=== PATIENT | male | born 1955 | race Caucasian/White ===

== ENCOUNTER 2019-01-02 14:34 | Inpatient (IN) | payer OTHER ==
--- NOTE | 2019-01-02 15:24 | ER Document Report ---
ED Medical Screen (RME) - General Chief Complaint: Chest Pain Stated Complaint: SHORTNESS OF BREATH Time Seen by Provider: 01/02/19 15:10 Primary Care Provider: RANDOLPH EPPERSON PA [Primary Care Provider] - Follow up as needed Mode of Arrival: Wheelchair Information source: Patient Notes: Patient presents emergency department sent over from the [place] with complaints of chest tightness cough difficulty getting a deep breath. History of recent TN on December 26. He was evaluated at [facility] and sent to [facility] for stent placement. He also reports stent placed in April 2018. Patient is coughing frequently. Reports chest tightness. Reports had chest tightness with his recent TN also. Patient is taking anticoagulant- Effient I have greeted and performed a rapid initial assessment of this patient. A comprehensive ED assessment and evaluation of the patient, analysis of test results and completion of the medical decision making process will be conducted by additional ED providers. Dictation of this chart was performed using voice recognition software; therefore, there may be some unintended grammatical errors. - Related Data Allergies/Adverse Reactions: No Known Allergies Allergy (Unverified 01/02/19 14:38) Physical Exam - Vital signs Vitals: Temp Pulse Resp BP Pulse Ox 99.7 F 96 20 107/65 91 L 01/02/19 14:40 01/02/19 14:40 01/02/19 14:40 01/02/19 14:40 01/02/19 14:40 Course - Vital Signs Vital signs: Temp Pulse Resp BP Pulse Ox 99.7 F 96 20 107/65 91 L 01/02/19 14:40 01/02/19 14:40 01/02/19 14:40 01/02/19 14:40 01/02/19 14:40 Doctor's Discharge - Discharge Referrals: RANDOLPH EPPERSON PA [Primary Care Provider] - Follow up as needed
[2019-01-02 15:52] LABS: ABSOLUTE BASOPHILS # (AUTO) 0.2 10^3/uL (0.0-0.2); ABSOLUTE EOSINOPHILS # (AUTO) 0.2 10^3/uL (0.0-0.6); ABSOLUTE LYMPHOCYTES (AUTO) 3.1 10^3/uL (0.5-4.7); ABSOLUTE MONOCYTES (AUTO) 3.1 10^3/uL (0.1-1.4); ABSOLUTE NEUT (AUTO) 13.1 10^3/uL (1.7-8.2); HEMATOCRIT 44.7 % (37.9-51.0); HEMOGLOBIN 15.3 g/dL (13.5-17.0); LYMPHOCYTES % (AUTO) 15.9 % (13-45); MEAN CORPUSCULAR HGB CONC 34.3 g/dL (32.0-36.0); MEAN CORPUSCULAR VOLUME 93 fl (80-97); MONOCYTES % (AUTO) 15.7 % (3-13); PLATELET COUNT 346 10^3/uL (150-450); RED CELL DISTRIBUTION WIDTH 12.9 % (11.5-14.0); SEGMENTED NEUTROPHILS % (AUTO) 66.4 % (42-78); TOTAL CELLS COUNTED % (AUTO) 100 %; WHITE BLOOD COUNT 19.7 10^3/uL (4.0-10.5)
--- NOTE | 2019-01-02 15:53 | RADIOLOGY REPORT (SQ) ---
EXAM DESCRIPTION: CHEST 2 VIEWS COMPLETED DATE/TIME: 01/02/2019 3:38 pm REASON FOR STUDY: chest tightness COMPARISON: 02/27/2007 EXAM PARAMETERS: NUMBER OF VIEWS: two views TECHNIQUE: Digital Frontal and Lateral radiographic views of the chest acquired. RADIATION DOSE: NA LIMITATIONS: none FINDINGS: LUNGS AND PLEURA: No opacities, masses or pneumothorax. No pleural effusion. MEDIASTINUM AND HILAR STRUCTURES: No masses or contour abnormalities. HEART AND VASCULAR STRUCTURES: Heart normal size. No evidence for failure. BONES: No acute findings. HARDWARE: None in the chest. OTHER: No other significant finding. IMPRESSION: NO ACUTE RADIOGRAPHIC FINDING IN THE CHEST. TECHNICAL DOCUMENTATION: JOB ID: [id number] [employer]- All Rights Reserved Reading location - IP/workstation name: [email or web address]
[2019-01-02 16:17] LABS: ALANINE AMINOTRANSFERASE 30 U/L (21-72); ALKALINE PHOSPHATASE 98 U/L (38-126); ANION GAP 10 (5-19); ASPARTATE AMINO TRANSFERASE 24 U/L (17-59); BILIRUBIN,DIRECT 0.3 mg/dL (0.0-0.4); BILIRUBIN,TOTAL 1.1 mg/dL (0.2-1.3); BLOOD UREA NITROGEN 17 mg/dL (7-20); CALCIUM 9.3 mg/dL (8.4-10.2); CARBON DIOXIDE 30 mmol/L (22-30); CHLORIDE 99 mmol/L (98-107); CREATINE KINASE 75 U/L (55-170); GLUCOSE 109 mg/dL (75-110); POTASSIUM 4.6 mmol/L (3.6-5.0); SODIUM 138.5 mmol/L (137-145); TOTAL PROTEIN 7.1 g/dL (6.3-8.2)
--- NOTE | 2019-01-02 16:59 | ER Document Report ---
ED General - General Chief Complaint: Chest Pain Stated Complaint: SHORTNESS OF BREATH Time Seen by Provider: 01/02/19 15:10 Mode of Arrival: Wheelchair Information source: Patient Notes: This is a 63-year-old man with a history of COPD, obstructive sleep apnea (to be started on CPAP), coronary artery disease (history of 2 stents, one stent placed 1 week ago at [facility]) who presents to the emergency room with shortness of breath, productive cough (yellow and green sputum), chest tightness, wheezing - HPI Onset: Last week Onset/Duration: Gradual Quality of pain: No pain Severity: None Pain Level: Denies Associated symptoms: Productive cough, Shortness of breath. denies: Fever Exacerbated by: Movement Relieved by: Remaining still Similar symptoms previously: Yes Recently seen / treated by doctor: Yes - Related Data Allergies/Adverse Reactions: No Known Allergies Allergy (Unverified 01/02/19 14:38) Past Medical History - General Information source: Patient - Social History Smoking Status: Former Smoker Cigarette use (# per day): No - Quit 3 weeks ago Chew tobacco use (# tins/day): No Frequency of alcohol use: None Drug Abuse: None Lives with: Family Family History: None Patient has suicidal ideation: No Patient has homicidal ideation: No - Past Medical History Cardiac Medical History: Reports: Hx Hypertension Renal/ Medical History: Denies: Hx Peritoneal Dialysis Past Surgical History: Reports: Hx Cardiac Catheterization Review of Systems - Review of Systems Constitutional: denies: Chills, Fever EENT: No symptoms reported Cardiovascular: No symptoms reported Respiratory: See HPI Gastrointestinal: No symptoms reported Genitourinary: No symptoms reported Male Genitourinary: No symptoms reported Musculoskeletal: No symptoms reported Skin: No symptoms reported Hematologic/Lymphatic: No symptoms reported Neurological/Psychological: No symptoms reported Physical Exam - Vital signs Vitals: Temp Pulse Resp BP Pulse Ox 99.7 F 96 20 107/65 91 L 01/02/19 14:40 01/02/19 14:40 01/02/19 14:40 01/02/19 14:40 01/02/19 14:40 Notes: Physical exam: GENERAL: Patient is alert and oriented x3, no acute distress, blood pressure 104/76, pulse 88, O2 sat 94% on 2 L, respiratory rate 15. HEAD: Atraumatic, normocephalic. EYES: Pupils equal round and reactive to light, extraocular movements intact, sclera anicteric, conjunctiva are normal. ENT: TMs normal, nares patent, oropharynx clear without exudates. Moist mucous membranes. NECK: Normal range of motion, supple without obvious mass or JVD. LUNGS: Bilateral wheezing HEART: Regular rate and rhythm without murmurs, rubs or gallops. ABDOMEN: Soft, normoactive bowel sounds. No tenderness to palpation. No guarding, no rebound. No masses appreciated. EXTREMITIES: Normal range of motion, no pitting or edema. No clubbing or cyanosis. NEUROLOGICAL: Cranial nerves II through XII grossly intact. Normal speech, moving all extremities. PSYCH: Normal mood, normal affect. SKIN: Warm, Dry, normal turgor, no rashes or lesions noted. Course - Re-evaluation Re-evalutation: 01/02/19 20:56 Note this is a 63-year-old man with a history of obstructive sleep apnea, COPD (states his O2 sats normally around 88%), coronary artery disease (status post recent stent) who presents with a productive cough, shortness of breath and wheezing. She has received IV Solu-Medrol, nebulizers, IV antibiotics, IV magn esium. He continues to wheeze. The plan will be admission to the hospital. - Vital Signs Vital signs: Temp Pulse Resp BP Pulse Ox 99.7 F 96 18 114/76 94 01/02/19 14:40 01/02/19 14:40 01/02/19 17:01 01/02/19 17:00 01/02/19 17:01 - Laboratory Result Diagrams: 01/02/19 15:38 01/02/19 15:38 Laboratory results interpreted by me: 01/02/19 15:38 WBC 19.7 H Monocytes % 15.7 H Absolute Neutrophils 13.1 H Absolute Monocytes 3.1 H - Diagnostic Test Radiology reviewed: Image reviewed, Reports reviewed - Chest x-ray shows no infiltrates - EKG Interpretation by Me Rate: Normal Rhythm: NSR - EKG shows normal sinus rhythm with a ventricular rate of 91, no acute ST-T wave changes Discharge - Discharge Clinical Impression: COPD exacerbation Condition: Stable Disposition: ADMITTED INPATIENT Admitting Provider: Hair (Hospitalist) Unit Admitted: Medical Floor
[2019-01-02] MEDS ORDERED: IPRATROPIUM/ALBUTEROL 0.5-2.5 MG/3 ML AMPUL NEB ONE ×4 (17:00→20:41)
[2019-01-02] MEDS ORDERED: CEFTRIAXONE 1 GM/D5W RTU 1 GM/50 ML RTUPB IV ONE (19:14)
[2019-01-02] MEDS ORDERED: AZITHROMYCIN INJ 500 MG VIAL IV ONE (19:15)
--- NOTE | 2019-01-02 19:36 | EKG REPORT ---
SEVERITY:- NORMAL ECG - SINUS RHYTHM : Confirmed by: Mirna Marrero MD 02-Jan-2019 19:35:32
[2019-01-02] MEDS ORDERED: MAGNESIUM SULFATE/D5W 1 GM/100 ML RTUPB IV ONE (20:41)
[2019-01-02] MEDS ORDERED: KETOROLAC TROMETHAMINE INJ/PF 30 MG/1 ML SDV IV PRN (20:50)
[2019-01-02] MEDS ORDERED: HYDRALAZINE HCL INJ/PF 20 MG/1 ML SDV IV PRN (20:50)
[2019-01-02] MEDS ORDERED: ACETAMINOPHEN 325 MG TABLET PO PRN (20:51)
[2019-01-02] MEDS ORDERED: IPRATROPIUM/ALBUTEROL 0.5-2.5 MG/3 ML AMPUL NEB PRN (20:51)
[2019-01-02] MEDS ORDERED: GUAIFENESIN SYRP 200 MG/10 ML UDC PO PRN (20:51)
[2019-01-02] MEDS ORDERED: ATORVASTATIN CALCIUM 80 MG TABLET PO SCH (22:15)
[2019-01-02] MEDS: HEPARIN SOD (PORCINE) 5,000 UNIT/ML 1 ML SYRINGE SUBCUT SCH (22:38)
[2019-01-02] MEDS: FLUTICASONE NASAL SPRAY 50 MCG/SPRY 120 SPRAY/16 GM NASL SCH (22:38)
[2019-01-03] MEDS ORDERED: CHLORPHENIRAMINE MALEATE 4 MG TABLET ONE (00:41)
[2019-01-03] MEDS: CHLORPHENIRAMINE MALEATE 4 MG TABLET PO SCH ×4 (00:57→17:34)
[2019-01-03] MEDS: IPRATROPIUM/ALBUTEROL 0.5-2.5 MG/3 ML AMPUL NEB SCH ×4 (02:08→20:07)
[2019-01-03] MEDS ORDERED: CEFTRIAXONE 1 GM/D5W RTU 1 GM/50 ML RTUPB IV ONE (05:20)
[2019-01-03] MEDS: PANTOPRAZOLE SODIUM 20 MG TABLET.DR PO SCH (05:38)
[2019-01-03] MEDS: HEPARIN SOD (PORCINE) 5,000 UNIT/ML 1 ML SYRINGE SUBCUT SCH ×3 (05:38→21:28)
--- NOTE | 2019-01-03 05:53 | PDOC H&P ---
History of Present Illness Admission Date/PCP: 01/02/19 21:19 [facility] Patient complains of: Shortness of breath and productive cough History of Present Illness: ALBARO NAVARRO JR is a 63 year old male with a past medical history of COPD, chronic bronchitis, obstructive sleep apnea and coronary artery disease status post coronary artery stent 7 days ago at [facility]. Patient presents with approximately 5 days of shortness of breath and a productive cough with green sputum, use of accessory muscles, rales and hypoxia. Patient complains of dry or itchy throat for approximately 3 weeks. He denies rhinorrhea uncontrolled GERD or sore throat. He denies antibiotics over the last 6 weeks. He is otherwise felt well without chest pain palpitations nausea or vomiting. He receives empiric treatment in the emergency room and referred to the hospitalist for admission. Past Medical History Cardiac Medical History: Reports: Myocardial Infarction, Hypertension Pulmonary Medical History: Reports: Chronic Obstructive Pulmonary Disease (COPD), Pneumonia Past Surgical History Past Surgical History: Reports: Cardiac Catheterization, Coronary Stent - 01/01 Social History Information Source: Patient Lives with: Family Smoking Status: Former Smoker Frequency of Alcohol Use: None Drugs: None - Advance Directive Resuscitation Status: Full Code Family History Family History: COPD Parental Family History Reviewed: Yes Children Family History Reviewed: Yes Sibling(s) Family History Reviewed.: Yes Medication/Allergy Home Medications: Albuterol Sulfate [Proair HFA Inhalation Aerosol 8.5 gm MDI] 2 puff IH Q6HP PRN 01/02/19 Aspirin [Adult Low Dose Aspirin EC] 81 mg PO DAILY 01/02/19 Atorvastatin Calcium [Lipitor 80 mg Tablet] 80 mg PO QHS 01/02/19 Budesonide/Formoterol Fumarate [Symbicort HFA 80-4.5 mcg Inhaler 6.9 gm] 2 puff IH BID 01/02/19 Lisinopril [Zestril] 5 mg PO DAILY 01/02/19 Metoprolol Succinate [Toprol Xl 25 mg Tab.sr] 25 mg PO DAILY 01/02/19 Nitroglycerin [Nitrostat 0.4 mg (1/150 Gr) Tabs 25/Bottle] 0.4 mg SL Q5MP PRN 01/02/19 Omeprazole 20 mg PO DAILY 01/02/19 Prasugrel HCl [Effient 10 mg Tablet] 10 mg PO DAILY 01/02/19 Tiotropium Bieber [Spiriva Respimat] 1 puff IH DAILY 01/02/19 Allergies/Adverse Reactions: No Known Allergies Allergy (Unverified 01/02/19 14:38) Review of Systems Constitutional: ABSENT: chills, fever(s), headache(s), weight gain, weight loss Eyes: ABSENT: visual disturbances Ears: ABSENT: hearing changes Cardiovascular: ABSENT: chest pain, dyspnea on exertion, edema, orthropnea, palpitations Respiratory: ABSENT: cough, hemoptysis Gastrointestinal: ABSENT: abdominal pain, constipation, diarrhea, hematemesis, hematochezia, nausea, vomiting Genitourinary: ABSENT: dysuria, hematuria Musculoskeletal: ABSENT: joint swelling Integumentary: ABSENT: rash, wounds Neurological: ABSENT: abnormal gait, abnormal speech, confusion, dizziness, foca l weakness, syncope Psychiatric: ABSENT: anxiety, depression, homidical ideation, suicidal ideation Endocrine: ABSENT: cold intolerance, heat intolerance, polydipsia, polyuria Hematologic/Lymphatic: ABSENT: easy bleeding, easy bruising Physical Exam Vital Signs: Temp Pulse Resp BP Pulse Ox 98.0 F 84 20 116/71 89 L 01/03/19 04:28 01/03/19 04:28 01/03/19 04:28 01/03/19 04:28 01/03/19 04:28 Intake & Output 01/01/19 01/02/19 01/03/19 11:59 11:59 11:59 Intake Total 150 Balance 150 Weight 78.5 kg General appearance: PRESENT: no acute distress, well-developed, well-nourished Head exam: PRESENT: atraumatic, normocephalic Eye exam: PRESENT: conjunctiva pink, EOMI, PERRLA. ABSENT: scleral icterus Ear exam: PRESENT: normal external ear exam Mouth exam: PRESENT: moist, tongue midline Neck exam: ABSENT: carotid bruit, JVD, lymphadenopathy, thyromegaly Respiratory exam: PRESENT: clear to auscultation sirena, crackles, decreased breath sounds, prolonged expiratory phas, rales. ABSENT: rhonchi, wheezes Cardiovascular exam: PRESENT: RRR. ABSENT: diastolic murmur, rubs, systolic murmur Pulses: PRESENT: normal dorsalis pedis pul Vascular exam: PRESENT: normal capillary refill GI/Abdominal exam: PRESENT: normal bowel sounds, soft. ABSENT: distended, guarding, mass, organolmegaly, rebound, tenderness Rectal exam: PRESENT: deferred Extremities exam: PRESENT: full ROM. ABSENT: calf tenderness, clubbing, pedal edema Neurological exam: PRESENT: alert, awake, oriented to person, oriented to place, oriented to time, oriented to situation, CN II-XII grossly intact. ABSENT: motor sensory deficit Psychiatric exam: PRESENT: appropriate affect, normal mood. ABSENT: homicidal ideation, suicidal ideation Skin exam: PRESENT: dry, intact, warm. ABSENT: cyanosis, rash Results Laboratory Results: 01/02/19 15:38 01/02/19 15:38 01/02/19 01/02/19 15:38 15:38 WBC 19.7 H RBC 4.80 Hgb 15.3 Hct 44.7 MCV 93 MCH 32.0 MCHC 34.3 RDW 12.9 Plt Count 346 Seg Neutrophils % 66.4 Lymphocytes % 15.9 Monocytes % 15.7 H Eosinophils % 1.0 Basophils % 1.0 Absolute Neutrophils 13.1 H Absolute Lymphocytes 3.1 Absolute Monocytes 3.1 H Absolute Eosinophils 0.2 Absolute Basophils 0.2 Sodium 138.5 Potassium 4.6 Chloride 99 Carbon Dioxide 30 Anion Gap 10 BUN 17 Creatinine 0.97 Est GFR ( Amer) > 60 Est GFR (Non-Af Amer) > 60 Glucose 109 Calcium 9.3 Total Bilirubin 1.1 AST 24 ALT 30 Alkaline Phosphatase 98 Total Protein 7.1 Albumin 4.0 01/02/19 01/02/19 01/02/19 15:38 15:38 17:40 Creatine Kinase 75 Troponin I 0.053 0.055 01/02/19 20:28 Creatine Kinase Troponin I 0.051 Impressions: Chest X-Ray 01/02/19 15:17 IMPRESSION: NO ACUTE RADIOGRAPHIC FINDING IN THE CHEST. Assessment and Plan - Diagnosis (1) Acute exacerbation of chronic bronchitis Is this a current diagnosis for this admission?: Yes Plan: Flutter valve, prednisone, antibiotics given recent hospitalization. (2) COPD exacerbation Is this a current diagnosis for this admission?: Yes Plan: Secondary to #1, incentive spirometry, flutter valve, supplemental oxygen, prednisone, albuterol and Atrovent. Suggest outpatient pulmonary rehab (3) Coronary artery disease Is this a current diagnosis for this admission?: Yes Plan: Given recent cardiac intervention, follow-up serial cardiac enzymes, BNP and ESR (4) Obstructive sleep apnea Is this a current diagnosis for this admission?: Yes Plan: CPAP ordered - Time Time Spent with patient: 25-34 minutes - Inpatient Certification Medical Necessity: Need Close Monitoring Due to Risk of Patient Decompensation
[2019-01-03 06:30] LABS: HEMATOCRIT 38.1 % (37.9-51.0); HEMOGLOBIN 13.3 g/dL (13.5-17.0); MEAN CORPUSCULAR HEMOGLOBIN 31.8 pg (27.0-33.4); MEAN CORPUSCULAR HGB CONC 34.8 g/dL (32.0-36.0); MEAN CORPUSCULAR VOLUME 91 fl (80-97); PLATELET COUNT 285 10^3/uL (150-450); RED BLOOD COUNT 4.17 10^6/uL (4.35-5.55); WHITE BLOOD COUNT 15.6 10^3/uL (4.0-10.5)
[2019-01-03 06:44] LABS: ANION GAP 10 (5-19); BLOOD UREA NITROGEN 16 mg/dL (7-20); CARBON DIOXIDE 24 mmol/L (22-30); CHLORIDE 102 mmol/L (98-107); GLUCOSE 99 mg/dL (75-110); POTASSIUM 4.1 mmol/L (3.6-5.0); SODIUM 136.2 mmol/L (137-145)
[2019-01-03 07:10] LABS: ABSOLUTE LYMPHOCYTES# (MANUAL) 3.6 10^3/uL (0.5-4.7); BAND NEUTROPHILS % (MANUAL) 4 % (3-5); BASOPHILS % (MANUAL) 0 % (0-2); EOSINOPHILS % (MANUAL) 0 % (0-6); LYMPHOCYTES % (MANUAL) 23 % (13-45); MONOCYTES % (MANUAL) 13 % (3-13); SEGMENTED NEUTROPHILS % (MAN) 60 % (42-78); TOTAL CELLS COUNTED 100
[2019-01-03 07:11] LABS: RBC MORPHOLOGY COMMENT NORMO-CYTIC/CHROMIC
[2019-01-03 07:12] LABS: PLATELET COMMENT ADEQUATE
[2019-01-03] MEDS ORDERED: CEFTRIAXONE 1 GM/D5W RTU 50 ML IV SCH (10:00)
[2019-01-03] MEDS: ATORVASTATIN CALCIUM 80 MG TABLET PO SCH (10:20)
[2019-01-03] MEDS: LISINOPRIL 5 MG TABLET PO SCH (10:20)
[2019-01-03] MEDS: FLUTICASONE NASAL SPRAY 50 MCG/SPRY 120 SPRAY/16 GM NASL SCH ×2 (10:20→21:27)
[2019-01-03] MEDS: METOPROLOL SUCCINATE 25 MG TAB.SR.24H PO SCH (10:20)
[2019-01-03] MEDS: PREDNISONE 20 MG TABLET PO SCH ×2 (10:20→17:34)
[2019-01-03] MEDS: ASPIRIN 81 MG TABLET, ENT COATED PO SCH (10:20)
[2019-01-03] MEDS: PRASUGREL HCL 10 MG TABLET PO SCH (10:59)
--- NOTE | 2019-01-03 12:53 | PDOC PROGRESS REPORT ---
Subjective Progress Note for:: 01/03/19 Subjective:: ALBARO NAVARRO JR is a 63 year old male with a past medical history of COPD, chronic bronchitis, obstructive sleep apnea and coronary artery disease status post coronary artery stent 7 days ago at [facility]. Patient presents with approximately 5 days of shortness of breath and a productive cough with green sputum, use of accessory muscles, rales and hypoxia. Patient complains of dry or itchy throat for approximately 3 weeks. He denies rhinorrhea uncontrolled GERD or sore throat. He denies antibiotics over the last 6 weeks. He is otherwise felt well without chest pain palpitations nausea or vomiting. He receives empiric treatment in the emergency room and referred to the hospitalist for admission. Reason For Visit: ACUTE ON CHRONIC BRONCHITIS COPD EXACERBATION Physical Exam Vital Signs: Temp Pulse Resp BP Pulse Ox 97.9 F 81 16 97/58 L 91 L 01/03/19 10:42 01/03/19 10:42 01/03/19 10:42 01/03/19 10:42 01/03/19 10:42 Intake & Output 01/02/19 01/03/19 01/04/19 06:59 06:59 06:59 Intake Total 150 450 Balance 150 450 Weight 78.5 kg General appearance: PRESENT: no acute distress, well-developed, well-nourished Head exam: PRESENT: atraumatic, normocephalic Respiratory exam: PRESENT: decreased breath sounds, wheezes. ABSENT: rales, rhonchi GI/Abdominal exam: PRESENT: normal bowel sounds, soft. ABSENT: distended, guarding, mass, organolmegaly, rebound, tenderness Extremities exam: PRESENT: full ROM. ABSENT: calf tenderness, clubbing, pedal edema Neurological exam: PRESENT: alert, awake, oriented to person, oriented to place, oriented to time, oriented to situation, CN II-XII grossly intact. ABSENT: motor sensory deficit Results Laboratory Results: 01/03/19 05:38 01/03/19 05:38 01/02/19 01/02/19 01/03/19 15:38 15:38 05:38 WBC 19.7 H 15.6 H RBC 4.80 4.17 L Hgb 15.3 13.3 L Hct 44.7 38.1 MCV 93 91 MCH 32.0 31.8 MCHC 34.3 34.8 RDW 12.9 13.0 Plt Count 346 285 Seg Neutrophils % 66.4 Not Reportable Lymphocytes % 15.9 Not Reportable Monocytes % 15.7 H Not Reportable Eosinophils % 1.0 Not Reportable Basophils % 1.0 Not Reportable Absolute Neutrophils 13.1 H Not Reportable Absolute Lymphocytes 3.1 Not Reportable Absolute Monocytes 3.1 H Not Reportable Absolute Eosinophils 0.2 Not Reportable Absolute Basophils 0.2 Not Reportable Sodium 138.5 Potassium 4.6 Chloride 99 Carbon Dioxide 30 Anion Gap 10 BUN 17 Creatinine 0.97 Est GFR ( Amer) > 60 Est GFR (Non-Af Amer) > 60 Glucose 109 Calcium 9.3 Total Bilirubin 1.1 AST 24 ALT 30 Alkaline Phosphatase 98 Total Protein 7.1 Albumin 4.0 01/03/19 05:38 WBC RBC Hgb Hct MCV MCH MCHC RDW Plt Count Seg Neutrophils % Lymphocytes % Monocytes % Eosinophils % Basophils % Absolute Neutrophils Absolute Lymphocytes Absolute Monocytes Absolute Eosinophils Absolute Basophils Sodium 136.2 L Potassium 4.1 Chloride 102 Carbon Dioxide 24 Anion Gap 10 BUN 16 Creatinine 0.88 Est GFR ( Amer) > 60 Est GFR (Non-Af Amer) > 60 Glucose 99 Calcium 9.0 Total Bilirubin AST ALT Alkaline Phosphatase Total Protein Albumin 01/02/19 01/02/19 01/02/19 15:38 15:38 17:40 Creatine Kinase 75 Troponin I 0.053 0.055 NT-Pro-B Natriuret Pep 01/02/19 01/02/19 20:28 20:28 Creatine Kinase Troponin I 0.051 NT-Pro-B Natriuret Pep 237 Impressions: Chest X-Ray 01/02/19 15:17 IMPRESSION: NO ACUTE RADIOGRAPHIC FINDING IN THE CHEST. Assessment and Plan - Diagnosis (1) Acute and chronic respiratory failure with hypoxia Is this a current diagnosis for this admission?: Yes Plan: Due to COPD exacerbation. Continue duo nebs, flutter valve, incentive spirometry, IV steroids, empiric IV antibiotics, BiPAP, LABA's/LAMA's. Due to IV antibiotics in the setting of recent hospitalization. Follow-up cultures. Reassess for need for home oxygen tomorrow. (2) Acute exacerbation of chronic bronchitis Is this a current diagnosis for this admission?: Yes Plan: As per #1. (3) Elevated troponin Is this a current diagnosis for this admission?: Yes Plan: 0.053, 0.055, 0.051 respectively. No active chest pain, no EKG changes. This is most likely due to his recent PCI 1 week ago. Continue treatment for underlying CAD. Outpatient cardiology follow-up. If chest pain we will do a cardiac work-up. (4) Coronary artery disease Is this a current diagnosis for this admission?: Yes Plan: Status post PCI x2. Last one x1 week. BNP WNL. Likely elevated cardiac enzymes no EKG changes. Most likely due to recent PCI. Denies active chest pain. Continue DAPT, beta-blockers, WESLEY, statins. Outpatient PCP and cardiology follow-up. (5) Obstructive sleep apnea Is this a current diagnosis for this admission?: Yes Plan: Patient has had outpatient nocturnal polysomnography and has ordered his CPAP which he states will arrive to his home on Sunday. Continue nocturnal CPAP.
[2019-01-03] MEDS: AZITHROMYCIN 500 MG in DEXTROSE 5%-WATER 250 ML IV SCH (17:35)
[2019-01-03] MEDS: CEFTRIAXONE SODIUM 1,000 MG in DEXTROSE 5%-WATER 50 ML IV SCH (21:25)
[2019-01-04] MEDS: IPRATROPIUM/ALBUTEROL 0.5-2.5 MG/3 ML AMPUL NEB SCH ×3 (02:02→13:45)
[2019-01-04] MEDS: PANTOPRAZOLE SODIUM 20 MG TABLET.DR PO SCH (05:34)
[2019-01-04] MEDS: HEPARIN SOD (PORCINE) 5,000 UNIT/ML 1 ML SYRINGE SUBCUT SCH ×3 (05:34→21:42)
[2019-01-04 08:58] LABS: HEMOGLOBIN 13.5 g/dL (13.5-17.0); MEAN CORPUSCULAR HEMOGLOBIN 31.3 pg (27.0-33.4); MEAN CORPUSCULAR HGB CONC 33.8 g/dL (32.0-36.0); MEAN CORPUSCULAR VOLUME 93 fl (80-97); PLATELET COUNT 306 10^3/uL (150-450); RED BLOOD COUNT 4.32 10^6/uL (4.35-5.55); RED CELL DISTRIBUTION WIDTH 12.7 % (11.5-14.0); WHITE BLOOD COUNT 18.1 10^3/uL (4.0-10.5)
[2019-01-04 10:12] LABS: ABSOLUTE MONOCYTES # (MANUAL) 0.2 10^3/uL (0.1-1.4); BAND NEUTROPHILS % (MANUAL) 2 % (3-5); BASOPHILS % (MANUAL) 0 % (0-2); EOSINOPHILS % (MANUAL) 0 % (0-6); LYMPHOCYTES % (MANUAL) 11 % (13-45); MONOCYTES % (MANUAL) 1 % (3-13); SEGMENTED NEUTROPHILS % (MAN) 86 % (42-78); TOTAL CELLS COUNTED 100
[2019-01-04] MEDS: LISINOPRIL 5 MG TABLET PO SCH (10:12)
[2019-01-04] MEDS: FLUTICASONE NASAL SPRAY 50 MCG/SPRY 120 SPRAY/16 GM NASL SCH ×2 (10:12→21:42)
[2019-01-04] MEDS: PRASUGREL HCL 10 MG TABLET PO SCH (10:12)
[2019-01-04] MEDS: PREDNISONE 20 MG TABLET PO SCH ×2 (10:12→17:10)
[2019-01-04] MEDS: ATORVASTATIN CALCIUM 80 MG TABLET PO SCH (10:12)
[2019-01-04] MEDS: ASPIRIN 81 MG TABLET, ENT COATED PO SCH (10:12)
[2019-01-04] MEDS: METOPROLOL SUCCINATE 25 MG TAB.SR.24H PO SCH (10:12)
[2019-01-04 10:13] LABS: PLATELET COMMENT ADEQUATE; RBC MORPHOLOGY COMMENT NORMO-CYTIC/CHROMIC; TOXIC GRANULATION SLIGHT
--- NOTE | 2019-01-04 11:45 | PDOC PROGRESS REPORT ---
Subjective Progress Note for:: 01/04/19 Subjective:: ALBARO NAVARRO JR is a 63 year old male with a past medical history of COPD, chronic bronchitis, obstructive sleep apnea and coronary artery disease status post coronary artery stent 7 days ago at [facility]. Patient presents with approximately 5 days of shortness of breath and a productive cough with green sputum, use of accessory muscles, rales and hypoxia. Patient complains of dry or itchy throat for approximately 3 weeks. He denies rhinorrhea uncontrolled GERD or sore throat. He denies antibiotics over the last 6 weeks. He is otherwise felt well without chest pain palpitations nausea or vomiting. He receives empiric treatment in the emergency room and referred to the hospitalist for admission. 01/04/2019. No acute events overnight, patient has been using his CPAP overnight, still dependent on supplemental oxygen, dropping to high 80s on room air. Still having nonproductive cough however denies any fever, chills, chest pain, nausea, vomiting, diarrhea, constipation or any urinary symptoms. He stating that he has an appointment on Sunday at 9 AM to get [facility]. Reason For Visit: ACUTE ON CHRONIC BRONCHITIS COPD EXACERBATION Physical Exam Vital Signs: Temp Pulse Resp BP Pulse Ox 97.5 F 85 18 110/70 93 01/04/19 08:13 01/04/19 08:13 01/04/19 08:13 01/04/19 08:13 01/04/19 08:13 Intake & Output 01/03/19 01/04/19 01/05/19 06:59 06:59 06:59 Intake Total 150 1740 Balance 150 1740 Weight 78.5 kg 77.6 kg General appearance: PRESENT: no acute distress, well-developed, well-nourished Head exam: PRESENT: atraumatic, normocephalic Respiratory exam: PRESENT: clear to auscultation sirena, wheezes - RUL. ABSENT: rales, rhonchi Cardiovascular exam: PRESENT: RRR. ABSENT: diastolic murmur, rubs, systolic murmur Extremities exam: PRESENT: full ROM. ABSENT: calf tenderness, clubbing, pedal edema Neurological exam: PRESENT: alert, awake, oriented to person, oriented to place, oriented to time, oriented to situation, CN II-XII grossly intact. ABSENT: motor sensory deficit Results Laboratory Results: 01/04/19 08:35 01/03/19 05:38 01/04/19 08:35 WBC 18.1 H RBC 4.32 L Hgb 13.5 Hct 40.0 MCV 93 MCH 31.3 MCHC 33.8 RDW 12.7 Plt Count 306 Seg Neutrophils % Not Reportable Lymphocytes % Not Reportable Monocytes % Not Reportable Eosinophils % Not Reportable Basophils % Not Reportable Absolute Neutrophils Not Reportable Absolute Lymphocytes Not Reportable Absolute Monocytes Not Reportable Absolute Eosinophils Not Reportable Absolute Basophils Not Reportable 01/02/19 01/02/19 01/02/19 15:38 15:38 17:40 Creatine Kinase 75 Troponin I 0.053 0.055 NT-Pro-B Natriuret Pep 01/02/19 01/02/19 20:28 20:28 Creatine Kinase Troponin I 0.051 NT-Pro-B Natriuret Pep 237 Impressions: Chest X-Ray 01/02/19 15:17 IMPRESSION: NO ACUTE RADIOGRAPHIC FINDING IN THE CHEST. Assessment and Plan - Diagnosis (1) Acute and chronic respiratory failure with hypoxia Is this a current diagnosis for this admission?: Yes Plan: Mild improvement. Still dependent on supplemental O2. Not on home O2. Due to COPD exacerbation. Continue duo nebs, flutter valve, incentive spirometry, IV steroids, empiric IV antibiotics, BiPAP, LABA's/LAMA's. Continue IV antibiotics in the setting of recent hospitalization. Azithromycin and cefepime day 2. Blood cultures from admission positive 1/2 gram-positive cocci. Pending sensitivity. Reassess for need for home oxygen tomorrow. (2) COPD exacerbation Is this a current diagnosis for this admission?: Yes Plan: As per #1. (3) Elevated troponin Is this a current diagnosis for this admission?: Yes Plan: 0.053, 0.055, 0.051 respectively. No active chest pain, no EKG changes. This is most likely due to his recent PCI 1 week ago. Continue treatment for underlying CAD. Outpatient cardiology follow-up. If chest pain we will do a cardiac work-up. (4) Coronary artery disease Is this a current diagnosis for this admission?: Yes Plan: Status post PCI x2. Last one x1 week. BNP WNL. Likely elevated cardiac enzymes no EKG changes. Most likely due to recent PCI. Denies active chest pain. Continue DAPT, beta-blockers, WESLEY, statins. Outpatient PCP and cardiology follow-up. (5) Obstructive sleep apnea Is this a current diagnosis for this admission?: Yes Plan: Patient has had outpatient nocturnal polysomnography and has ordered his CPAP. [facility] 9 AM. Continue nocturnal CPAP.
[2019-01-04] MEDS ORDERED: DILTIAZEM HCL/D5W 125 MG/125 ML RTUINJ IV PRN (14:52)
[2019-01-04] MEDS: AZITHROMYCIN 500 MG in DEXTROSE 5%-WATER 250 ML IV SCH (17:10)
[2019-01-04] MEDS: DILTIAZEM HCL 30 MG TABLET PO SCH (18:44)
[2019-01-04] MEDS: LEVALBUTEROL HCL NEB 0.63 MG/3 ML AMPUL NEB SCH (20:08)
[2019-01-04] MEDS: IPRATROPIUM BROMIDE 0.02% NEB 0.5 MG/2.5 ML AMPUL NEB SCH (20:08)
[2019-01-04] MEDS: CEFTRIAXONE SODIUM 1,000 MG in DEXTROSE 5%-WATER 50 ML IV SCH (21:42)
[2019-01-05] MEDS: DILTIAZEM HCL 30 MG TABLET PO SCH ×5 (00:22→23:18)
[2019-01-05 05:04] LABS: HEMATOCRIT 36.8 % (37.9-51.0); HEMOGLOBIN 12.7 g/dL (13.5-17.0); MEAN CORPUSCULAR HEMOGLOBIN 31.9 pg (27.0-33.4); MEAN CORPUSCULAR HGB CONC 34.6 g/dL (32.0-36.0); MEAN CORPUSCULAR VOLUME 92 fl (80-97); PLATELET COUNT 321 10^3/uL (150-450); RED BLOOD COUNT 3.99 10^6/uL (4.35-5.55); RED CELL DISTRIBUTION WIDTH 13.1 % (11.5-14.0); WHITE BLOOD COUNT 21.2 10^3/uL (4.0-10.5)
[2019-01-05 05:20] LABS: ALANINE AMINOTRANSFERASE 42 U/L (21-72); ALBUMIN 3.2 g/dL (3.5-5.0); ALKALINE PHOSPHATASE 83 U/L (38-126); ANION GAP 8 (5-19); ASPARTATE AMINO TRANSFERASE 28 U/L (17-59); BILIRUBIN,DIRECT 0.2 mg/dL (0.0-0.4); BILIRUBIN,TOTAL 0.3 mg/dL (0.2-1.3); BLOOD UREA NITROGEN 18 mg/dL (7-20); CALCIUM 9.1 mg/dL (8.4-10.2); CARBON DIOXIDE 24 mmol/L (22-30); CHLORIDE 104 mmol/L (98-107); GLUCOSE 150 mg/dL (75-110); POTASSIUM 4.9 mmol/L (3.6-5.0); TOTAL PROTEIN 6.1 g/dL (6.3-8.2)
[2019-01-05 05:26] LABS: ABSOLUTE LYMPHOCYTES# (MANUAL) 1.3 10^3/uL (0.5-4.7); ABSOLUTE MONOCYTES # (MANUAL) 1.1 10^3/uL (0.1-1.4); BAND NEUTROPHILS % (MANUAL) 2 % (3-5); BASOPHILS % (MANUAL) 0 % (0-2); EOSINOPHILS % (MANUAL) 0 % (0-6); LYMPHOCYTES % (MANUAL) 6 % (13-45); MONOCYTES % (MANUAL) 5 % (3-13); SEGMENTED NEUTROPHILS % (MAN) 87 % (42-78); TOTAL CELLS COUNTED 100
[2019-01-05 05:27] LABS: PLATELET COMMENT ADEQUATE; RBC MORPHOLOGY COMMENT NORMO-CYTIC/CHROMIC
[2019-01-05] MEDS: PANTOPRAZOLE SODIUM 20 MG TABLET.DR PO SCH (05:29)
[2019-01-05] MEDS: HEPARIN SOD (PORCINE) 5,000 UNIT/ML 1 ML SYRINGE SUBCUT SCH ×3 (05:29→22:48)
[2019-01-05] MEDS: LEVALBUTEROL HCL NEB 0.63 MG/3 ML AMPUL NEB SCH ×3 (07:38→20:08)
[2019-01-05] MEDS: IPRATROPIUM BROMIDE 0.02% NEB 0.5 MG/2.5 ML AMPUL NEB SCH ×3 (07:38→20:08)
--- NOTE | 2019-01-05 10:09 | PDOC PROGRESS REPORT ---
Subjective Progress Note for:: 01/05/19 Subjective:: ALBARO NAVARRO JR is a 63 year old male with a past medical history of COPD, chronic bronchitis, obstructive sleep apnea and coronary artery disease status post coronary artery stent 7 days ago at [facility]. Patient presents with approximately 5 days of shortness of breath and a productive cough with green sputum, use of accessory muscles, rales and hypoxia. Patient complains of dry or itchy throat for approximately 3 weeks. He denies rhinorrhea uncontrolled GERD or sore throat. He denies antibiotics over the last 6 weeks. He is otherwise felt well without chest pain palpitations nausea or vomiting. He receives empiric treatment in the emergency room and referred to the hospitalist for admission. 01/04/2019. No acute events overnight, patient has been using his CPAP overnight, still dependent on supplemental oxygen, dropping to high 80s on room air. Still having nonproductive cough however denies any fever, chills, chest pain, nausea, vomiting, diarrhea, constipation or any urinary symptoms. He stating that he has an appointment on Sunday at 9 AM to get his [facility]. 01/05/2019. No acute events overnight. Patient off of Cardizem since yesterday, was switched to p.o. Cardizem 30 mg every 6 which was held last night due to systolic blood pressure being in the 90s. Patient still dependent on supplemental oxygen. Telemetry sinus rhythm. Patient was updated about his episode of A. fib RVR and the fact that he is still hypoxic and requiring oxygen and is not safe for him to be sent home yet. Patient voiced understanding and he said he will try to call the [facility] and his reschedule his appointment for tomorr ow. Patient denies any fever, chills, nausea, vomiting, diarrhea, constipation or any urinary symptoms. Reason For Visit: ACUTE ON CHRONIC BRONCHITIS COPD EXACERBATION Physical Exam Vital Signs: Temp Pulse Resp BP Pulse Ox 97.5 F 78 18 109/70 93 01/05/19 07:13 01/05/19 07:42 01/05/19 07:42 01/05/19 07:13 01/05/19 07:42 Intake & Output 01/04/19 01/05/19 01/06/19 06:59 06:59 06:59 Intake Total 1739 1932 Balance 1740 1933 Weight 77.6 kg 78.2 kg General appearance: PRESENT: no acute distress, well-developed, well-nourished Head exam: PRESENT: atraumatic, normocephalic Eye exam: PRESENT: conjunctiva pink, EOMI, PERRLA. ABSENT: scleral icterus Ear exam: PRESENT: normal external ear exam Mouth exam: PRESENT: moist, tongue midline Neck exam: ABSENT: carotid bruit, JVD, lymphadenopathy, thyromegaly Respiratory exam: PRESENT: clear to auscultation sirena. ABSENT: rales, rhonchi, wheezes Cardiovascular exam: PRESENT: RRR. ABSENT: diastolic murmur, rubs, systolic murmur Pulses: PRESENT: normal dorsalis pedis pul Vascular exam: PRESENT: normal capillary refill GI/Abdominal exam: PRESENT: normal bowel sounds, soft. ABSENT: distended, guarding, mass, organolmegaly, rebound, tenderness Rectal exam: PRESENT: deferred Extremities exam: PRESENT: full ROM. ABSENT: calf tenderness, clubbing, pedal edema Neurological exam: PRESENT: alert, awake, oriented to person, oriented to place, oriented to time, oriented to situation, CN II-XII grossly intact. ABSENT: motor sensory deficit Psychiatric exam: PRESENT: appropriate affect, normal mood. ABSENT: homicidal ideation, suicidal ideation Skin exam: PRESENT: dry, intact, warm. ABSENT: cyanosis, rash Results Laboratory Results: 01/05/19 04:07 01/05/19 04:07 01/04/19 01/05/19 01/05/19 08:35 04:07 04:07 WBC 18.1 H 21.2 H RBC 4.32 L 3.99 L Hgb 13.5 12.7 L Hct 40.0 36.8 L MCV 93 92 MCH 31.3 31.9 MCHC 33.8 34.6 RDW 12.7 13.1 Plt Count 306 321 Seg Neutrophils % Not Reportable Lymphocytes % Not Reportable Monocytes % Not Reportable Eosinophils % Not Reportable Basophils % Not Reportable Absolute Neutrophils Not Reportable Absolute Lymphocytes Not Reportable Absolute Monocytes Not Reportable Absolute Eosinophils Not Reportable Absolute Basophils Not Reportable Sodium 136.0 L Potassium 4.9 Chloride 104 Carbon Dioxide 24 Anion Gap 8 BUN 18 Creatinine 0.85 Est GFR ( Amer) > 60 Est GFR (Non-Af Amer) > 60 Glucose 150 H Calcium 9.1 Total Bilirubin 0.3 AST 28 ALT 42 Alkaline Phosphatase 83 Total Protein 6.1 L Albumin 3.2 L 01/02/19 01/02/19 01/02/19 15:38 15:38 17:40 Creatine Kinase 75 Troponin I 0.053 0.055 NT-Pro-B Natriuret Pep 01/02/19 01/02/19 20:28 20:28 Creatine Kinase Troponin I 0.051 NT-Pro-B Natriuret Pep 237 Impressions: Chest X-Ray 01/02/19 15:17 IMPRESSION: NO ACUTE RADIOGRAPHIC FINDING IN THE CHEST. Assessment and Plan - Diagnosis (1) Paroxysmal atrial fibrillation with RVR Is this a current diagnosis for this admission?: Yes Plan: Developed A. fib RVR on 01/04/2019 around 3 PM. Was started on Cardizem drip and converted back to sinus rhythm the same day. Cardiology was consulted. Was transitioned to p.o. Cardizem however 1 of the doses were held because patient SBP was in the 90s. As per cardiology recommendations does not need to be on anticoagulation point patient as he is already on Effient and aspirin for his recent PCI. 30-day event monitor has been recommended organ builder which should be arranged upon patient's discharge. (2) Acute and chronic respiratory failure with hypoxia Is this a current diagnosis for this admission?: Yes Plan: Mild improvement. Still dependent on supplemental O2. Not on home O2. Due to COPD exacerbation. Continue duo nebs, flutter valve, incentive spirometry, IV steroids, empiric IV antibiotics, BiPAP, LABA's/LAMA's. Continue IV antibiotics in the setting of recent hospitalization. Azithromycin and cefepime day 3. Blood cultures from admission positive 1/2 gram-positive cocci. Pending sensitivity. Reassess for need for home oxygen tomorrow. (3) COPD exacerbation Is this a current diagnosis for this admission?: Yes Plan: As per #1. (4) Elevated troponin Is this a current diagnosis for this admission?: Yes Plan: 0.053, 0.055, 0.051 respectively. No active chest pain, no EKG changes. This is most likely due to his recent PCI 1 week ago. Continue treatment for underlying CAD. Outpatient cardiology follow-up. If chest pain we will do a cardiac work-up. (5) Coronary artery disease Is this a current diagnosis for this admission?: Yes Plan: Status post PCI x2. Last one x1 week. BNP WNL. Likely elevated cardiac enzymes no EKG changes. Most likely due to recent PCI. Denies active chest pain. Continue DAPT, beta-blockers, WESLEY, statins. Outpatient PCP and cardiology follow-up. (6) Obstructive sleep apnea Is this a current diagnosis for this admission?: Yes Plan: Patient has had outpatient nocturnal polysomnography and has ordered his CPAP. [facility] 9 AM. Continue nocturnal CPAP.
[2019-01-05] MEDS: PRASUGREL HCL 10 MG TABLET PO SCH (10:35)
[2019-01-05] MEDS: PREDNISONE 20 MG TABLET PO SCH ×2 (10:35→17:03)
[2019-01-05] MEDS: METOPROLOL SUCCINATE 25 MG TAB.SR.24H PO SCH (10:35)
[2019-01-05] MEDS: ASPIRIN 81 MG TABLET, ENT COATED PO SCH (10:35)
[2019-01-05] MEDS: ATORVASTATIN CALCIUM 80 MG TABLET PO SCH (10:35)
[2019-01-05] MEDS: FLUTICASONE NASAL SPRAY 50 MCG/SPRY 120 SPRAY/16 GM NASL SCH ×2 (10:35→22:41)
[2019-01-05] MEDS: LISINOPRIL 5 MG TABLET PO SCH (10:35)
--- NOTE | 2019-01-05 13:23 | PDOC CONSULTATION ---
Consultation-Blank Consultation: CARDIOLOGY CONSULTATION by Dr. Mirna Marrero. Patient seen around 12 noon on 01/05/2019. CONSULTING [facility] physician: Dr. Spivey, [facility] hospitalist physician. REASON FOR CONSULTATION: One episode of paroxysmal atrial fibrillation. HISTORY PRESENT ILLNESS: Patient is a 63-year-old male with known history of coronary artery disease with history of stent placed about 7 days ago, and history of COPD, who was admitted with acute exacerbation of COPD/infective bronchitis with productive cough and shortness of breath and wheezing since the past 5 days. The patient was known to be hypoxic when his oxygen was discontinued. The patient had asymptomatic transient episode of paroxysmal atrial fibrillation. The patient converted to sinus rhythm. He denies any chest pain or discomfort. There is no PND. There is some degree of orthopnea. There is no palpitations or leg edema. There is no syncope. The patient's troponin I has been in the indeterminate range and so far negative. There is no TIA CVA symptoms. The patient due to the recent stent has been on aspirin and Effient. Past Medical History Cardiac Medical History: Reports: Non-ST elevation myocardial Infarction in April 2018. After this the patient had a stent placed in circumflex. It was said by the patient that at that time his right coronary artery had a 40% lesion. Subsequently the patient had more shortness of breath and had abnormal stress test and about a week ago had a another stent placed in the right coronary artery, with there being accelerated progression of coronary artery disease., Hypertension Pulmonary Medical History: Reports: Chronic Obstructive Pulmonary Disease (COPD), Pneumonia. There is no prior history of atrial fibrillation or arrhythmias. He has a history of sleep apnea. This is been recently diagnosed on the patient has CPAP ordered and is yet to collect the machine from the [place]. He denies hypertension or diabetes mellitus or chronic kidney disease or thyroid disease. There is no history of TIA or CVA. Past Surgical History: Reports: Cardiac Catheterization, Coronary Stent . He had a right hip replacement. And a left knee replacement. Social History Information Source: Patient Lives with: Family Smoking Status: Former Smoker. He quit smoking 3 weeks ago Frequency of Alcohol Use: None Drugs: None - Advance Directive Resuscitation Status: Full Code. The patient's is his surrogate healthcare decision maker. Family History Family History: COPD.Father had Atrial fibrillation. Home Medications: Albuterol Sulfate [Proair HFA Inhalation Aerosol 8.5 gm MDI] 2 puff IH Q6HP PRN 01/02/19 Aspirin [Adult Low Dose Aspirin EC] 81 mg PO DAILY 01/02/19 Atorvastatin Calcium [Lipitor 80 mg Tablet] 80 mg PO QHS 01/02/19 Budesonide/Formoterol Fumarate [Symbicort HFA 80-4.5 mcg Inhaler 6.9 gm] 2 puff IH BID 01/02/19 Lisinopril [Zestril] 5 mg PO DAILY 01/02/19 Metoprolol Succinate [Toprol Xl 25 mg Tab.sr] 25 mg PO DAILY 01/02/19 Nitroglycerin [Nitrostat 0.4 mg (1/150 Gr) Tabs 25/Bottle] 0.4 mg SL Q5MP PRN 01/02/19 Omeprazole 20 mg PO DAILY 01/02/19 Prasugrel HCl [Effient 10 mg Tablet] 10 mg PO DAILY 01/02/19 Tiotropium Crucible [Spiriva Respimat] 1 puff IH DAILY 01/02/19 Allergies: No Known Allergies Allergy Review of Systems Constitutional: ABSENT: chills, fever(s), headache(s), weight gain, weight loss Eyes: ABSENT: visual disturbances Ears: ABSENT: hearing changes Cardiovascular: ABSENT: chest pain, , palpitations. He does have shortness of breath or wheezing. He has dyspnea on exertion onset about 5 days ago. Denies any anginal symptoms. There is no palpitations. There is no prior history of atrial fibrillation. There is no syncope. There is no symptoms of congestive heart failure. Respiratory: He has cough productive of greenish-yellow sputum. He has intermittent wheezing. The patient does have a history of COPD. He also has a history of sleep apnea. Gastrointestinal: ABSENT: abdominal pain, constipation, diarrhea, hematemesis, hematochezia, nausea, vomiting Genitourinary: ABSENT: dysuria, hematuria Musculoskeletal: ABSENT: joint swelling Integumentary: ABSENT: rash, wounds Neurological: ABSENT: abnormal gait, abnormal speech, confusion, dizziness, focal weakness, syncope there is no history of TIA CVA Psychiatric: ABSENT: anxiety, depression, homidical ideation, suicidal ideation Endocrine: ABSENT: cold intolerance, heat intolerance, polydipsia, polyuria. There is no history of diabetes mellitus or thyroid disease. Hematologic/Lymphatic: ABSENT: easy bleeding, easy bruising PHYSICAL EXAMINATION: The patient is well-built and well-nourished. At present in no major distress. He is well-groomed. Selected Entries 01/05/19 10:58 Temperature 97.3 F Temperature Oral Source Pulse Rate 68 Respiratory 18 Rate Blood Pressure 105/71 Blood Pressure 82 Mean BP Location Left Arm BP Position Supine O2 Sat by Pulse 94 Oximetry Oxygen Flow 2.00 Rate Oxygen Delivery Nasal Cannula Method HEAD: Is atraumatic normocephalic. EYES: Pupils equal round regular reactive light accommodation. ENT is negative NECK: Is supple. There is no JVD. Carotids equal there is no bruit there is no lymphadenopathy. There is no accessory muscles of respiration use. There is no goiter. Trachea central. LUNGS: There is diminished air entry prolonged expiration. There is scattered rhonchi and end expiratory wheezing. There is no rales of CHF. On percussion there is hyperresonance throughout. There is no chest wall tenderness on palpation. HEART: S1-S2 is heard S1 is of normal intensity. There is systolic murmur left sternal border and the apex there is no rub. There is no S3 gallop or S4 gallop. ABDOMEN: Is soft nontender there is no paraspinal megaly bowel sounds are well heard. There is no tender areas masses. EXTREMITIES femorals are well felt. There is no femoral bruits leg pulses are well felt. There is no pedal edema. There is no DVT or cellulitis. INSTRUCTIONAL SUPERVISOR: The patient is conscious awake alert oriented x3 with no focal deficits. PSYCHIATRIC: The patient judgment insight are intact his affect is normal. SKIN: There is no petechia or ecchymosis. There is no skin lesions or skin rashes. EKG: On admission is within normal limits. The patient's monitor rhythm strips shows episodes of paroxysmal atrial fibrillation. At present the monitor shows sinus rhythm. Current Medications Generic Name Dose Route Start Last Admin Trade Name Freq PRN Reason Stop Dose Admin Acetaminophen 650 mg 01/02/19 20:51 Tylenol 325 Mg Tablet PO 02/01/19 20:50 Q4HP PRN pain or temp greater than 101F Aspirin 81 mg 01/03/19 10:00 01/05/19 10:35 Ecotrin 81 Mg Ec Tablet PO 02/02/19 09:59 81 mg DAILY PEPPER Administration Atorvastatin Calcium 80 mg 01/03/19 10:00 01/05/19 10:35 Lipitor 80 Mg Tablet PO 02/01/19 22:14 80 mg DAILY PEPPER Administration Diltiazem HCl 30 mg 01/04/19 18:30 01/05/19 12:13 Cardizem 30 Mg Tablet PO 02/03/19 18:29 30 mg Q6 PEPPER Administration Fluticasone Propionate 2 spray 01/02/19 22:00 01/05/19 10:35 Flonase Nasal [place] 50 Mcg/[place] 16 Gm NASL 02/01/19 21:59 2 spr Q12 PEPPER Administration Guaifenesin 200 mg 01/02/19 20:51 Robitussin Syrup 200 Mg/10 Ml Ud Cup PO 02/01/19 20:50 Q4HP PRN COUGH Heparin Sodium (Porcine) 5,000 unit 01/02/19 22:00 01/05/19 05:29 Heparin Inj 5,000 Units/Ml 1 Ml Syringe SUBCUT 02/01/19 21:59 5,000 unit Q8 PEPPER Administration Hydralazine HCl 10 mg 01/02/19 20:50 Apresoline Inj/Pf 20 Mg/1 Ml Sdv IV 02/01/19 20:49 Q6HP PRN Sbp>160 Azithromycin 500 mg/ Dextrose 250 mls @ 250 mls/hr 01/03/19 18:00 01/04/19 18:55 IV 01/10/19 17:59 Infused QPM PEPPER Infusion Ceftriaxone Sodium 1,000 mg/ 50 mls @ 100 mls/hr 01/03/19 22:00 01/04/19 22:12 Dextrose IV 01/10/19 21:59 Infused QHS PEPPER Infusion Ipratropium Crucible 0.5 mg 01/04/19 20:00 01/05/19 07:38 Atrovent 0.02% Neb 0.5 Mg/2.5 Ml Ampul NEB 02/03/19 19:59 0.5 mg [id number] PEPPER Administration Levalbuterol HCl 0.63 mg 01/04/19 20:00 01/05/19 07:38 Xopenex Neb 0.63 Mg/3 Ml Ampul NEB 02/03/19 19:59 0.63 mg [id number] PEPPER Administration Lisinopril 5 mg 01/03/19 10:00 01/05/19 10:35 Prinivil 5 Mg Tablet PO 02/02/19 09:59 5 mg DAILY PEPPER Administration Metoprolol Succinate 25 mg 01/03/19 10:00 01/05/19 10:35 Toprol Xl 25 Mg Tab.Sr PO 02/02/19 09:59 25 mg DAILY PEPPER Administration Pantoprazole Sodium 20 mg 01/03/19 06:00 01/05/19 05:[address] Tablet PO 02/02/19 05:59 20 mg Q6AM PEPPER Administration Prasugrel 10 mg 01/03/19 12:00 01/05/19 10:35 Effient 10 Mg Tablet PO 02/02/19 11:59 10 mg DAILY PEPPER Administration Prednisone 20 mg 01/03/19 10:00 01/05/19 10:35 Deltasone 20 Mg Tablet PO 02/02/19 09:59 20 mg BID PEPPER Administration Sodium Chloride 2.5 ml 01/02/19 22:00 01/05/19 05:29 Saline Flush 2.5 Ml Monoject Prefil Syrin IV 02/01/19 21:59 2.5 ml Q8 PEPPER Administration Discontinued Medications Generic Name Dose Route Start Last Admin Trade Name Freq PRN Reason Stop Dose Admin Albuterol/Ipratropium 3 ml 01/02/19 17:00 01/02/19 17:35 Duoneb 3 Ml Ampul NEB 01/02/19 17:01 3 ml NOW ONE Administration Albuterol/Ipratropium 3 ml 01/02/19 17:58 01/02/19 18:19 Duoneb 3 Ml Ampul NEB 01/02/19 17:59 3 ml NOW ONE Administration Albuterol/Ipratropium 3 ml 01/02/19 19:15 01/02/19 20:39 Duoneb 3 Ml Ampul NEB 01/02/19 19:16 3 ml NOW ONE Administration Albuterol/Ipratropium 3 ml 01/02/19 20:41 01/02/19 22:38 Duoneb 3 Ml Ampul NEB 01/02/19 20:42 3 ml NOW ONE Administration Albuterol/Ipratropium 3 ml 01/02/19 20:51 Duoneb 3 Ml Ampul NEB 02/01/19 20:50 [id number] PRN SHORTNESS OF BREATH Albuterol/Ipratropium 3 ml 01/03/19 02:00 01/04/19 13:45 Duoneb 3 Ml Ampul NEB 02/02/19 01:59 3 ml RTQ6 PEPPER Administration Atorvastatin Calcium 80 mg 01/02/19 22:15 01/02/19 22:40 Lipitor 80 Mg Tablet PO 02/01/19 22:14 Not Given QHS PEPPER Azithromycin 500 mg 01/02/19 19:15 01/02/19 22:37 Zithromax Inj 500 Mg Vial IV 01/02/19 19:16 500 mg IVBAG (ED) ONE Administration Chlorpheniramine Maleate 4 mg 01/03/19 00:00 01/03/19 17:34 Chlor-Trimeton 4 Mg Tablet PO 01/03/19 18:01 4 mg Q6 PEPPER Administration Chlorpheniramine Maleate Confirm 01/03/19 00:41 01/03/19 01:09 Chlor-Trimeton 4 Mg Tablet Administered 01/03/19 00:42 Not Given Dose 4 mg .ROUTE .STK-MED ONE Ceftriaxone Sodium/Dextrose 1 gm in 50 mls @ 100 mls/hr 01/02/19 19:14 01/02/19 23:47 Rocephin Rtu 1 Gm/D5w 50 Ml Premix IV 01/02/19 19:43 Infused NOW ONE Infusion Magnesium Sulfate/Dextrose 1 gm in 100 mls @ 100 mls/hr 01/02/19 20:41 01/02/19 23:47 Magnesium Sulfate Rtu-D5w 1 Gm/100 Ml Premix IV 01/02/19 21:40 Infused NOW ONE Infusion Ceftriaxone Sodium/Dextrose Confirm 01/03/19 05:20 01/03/19 05:31 Rocephin Rtu 1 Gm/D5w 50 Ml Premix Administered 01/03/19 05:21 Not Given Dose 1 gm in 50 mls @ ud IV .STK-MED ONE Diltiazem HCl 125 mg in 125 mls @ 0 mls/hr 01/04/19 14:52 01/04/19 19:47 Cardizem Rtu Inj 125 Mg-D5w 125 Ml Premix IV 02/03/19 14:51 Infused CONTINUOUS PRN Titration THIS MED IS NOT "PRN" Protocol Titrate Ketorolac Tromethamine 15 mg 01/02/19 20:50 Toradol Inj/Pf 30 Mg/1 Ml Sdv IV 01/07/19 20:49 Q6HP PRN FOR PAIN OR TEMP Labs- Entire Visit 01/02/19 01/02/19 01/02/19 15:38 15:38 15:38 WBC 19.7 H RBC 4.80 Hgb 15.3 Hct 44.7 MCV 93 MCH 32.0 MCHC 34.3 RDW 12.9 Plt Count 346 Total Counted Seg Neutrophils % 66.4 Seg Neuts % (Manual) Band Neutrophils % Lymphocytes % 15.9 Lymphocytes % (Manual) Monocytes % 15.7 H Monocytes % (Manual) Eosinophils % 1.0 Eosinophils % (Manual) Basophils % 1.0 Basophils % (Manual) Absolute Neutrophils 13.1 H Abs Neuts (Manual) Absolute Lymphocytes 3.1 Abs Lymphs (Manual) Absolute Monocytes 3.1 H Abs Monocytes (Manual) Absolute Eosinophils 0.2 Absolute Eos (Manual) Absolute Basophils 0.2 Abs Basophils (Manual) Toxic Granulation Platelet Comment RBC Morph Comment ESR Sodium 138.5 Potassium 4.6 Chloride 99 Carbon Dioxide 30 Anion Gap 10 BUN 17 Creatinine 0.97 Est GFR ( Amer) > 60 Est GFR (Non-Af Amer) > 60 Glucose 109 Calcium 9.3 Total Bilirubin 1.1 Direct Bilirubin 0.3 Neonat Total Bilirubin Not Reportable Neonat Direct Bilirubin Not Reportable Neonat Indirect Bili Not Reportable AST 24 ALT 30 Alkaline Phosphatase 98 Creatine Kinase 75 Troponin I 0.053 NT-Pro-B Natriuret Pep Total Protein 7.1 Albumin 4.0 01/02/19 01/02/19 01/02/19 17:40 20:28 20:28 WBC RBC Hgb Hct MCV MCH MCHC RDW Plt Count Total Counted Seg Neutrophils % Seg Neuts % (Manual) Band Neutrophils % Lymphocytes % Lymphocytes % (Manual) Monocytes % Monocytes % (Manual) Eosinophils % Eosinophils % (Manual) Basophils % Basophils % (Manual) Absolute Neutrophils Abs Neuts (Manual) Absolute Lymphocytes Abs Lymphs (Manual) Absolute Monocytes Abs Monocytes (Manual) Absolute Eosinophils Absolute Eos (Manual) Absolute Basophils Abs Basophils (Manual) Toxic Granulation Platelet Comment RBC Morph Comment ESR Sodium Potassium Chloride Carbon Dioxide Anion Gap BUN Creatinine Est GFR ( Amer) Est GFR (Non-Af Amer) Glucose Calcium Total Bilirubin Direct Bilirubin Neonat Total Bilirubin Neonat Direct Bilirubin Neonat Indirect Bili AST ALT Alkaline Phosphatase Creatine Kinase Troponin I 0.055 0.051 NT-Pro-B Natriuret Pep 237 Total Protein Albumin 01/03/19 01/03/19 01/03/19 05:38 05:38 06:32 WBC 15.6 H RBC 4.17 L Hgb 13.3 L Hct 38.1 MCV 91 MCH 31.8 MCHC 34.8 RDW 13.0 Plt Count 285 Total Counted 100 Seg Neutrophils % Not Reportable Seg Neuts % (Manual) 60 Band Neutrophils % 4 Lymphocytes % Not Reportable Lymphocytes % (Manual) 23 Monocytes % Not Reportable Monocytes % (Manual) 13 Eosinophils % Not Reportable Eosinophils % (Manual) 0 Basophils % Not Reportable Basophils % (Manual) 0 Absolute Neutrophils Not Reportable Abs Neuts (Manual) 10.0 H Absolute Lymphocytes Not Reportable Abs Lymphs (Manual) 3.6 Absolute Monocytes Not Reportable Abs Monocytes (Manual) 2.0 H Absolute Eosinophils Not Reportable Absolute Eos (Manual) 0.0 Absolute Basophils Not Reportable Abs Basophils (Manual) 0.0 Toxic Granulation Platelet Comment ADEQUATE RBC Morph Comment NORMO-CYTIC/CHROMIC ESR 72 H Sodium 136.2 L Potassium 4.1 Chloride 102 Carbon Dioxide 24 Anion Gap 10 BUN 16 Creatinine 0.88 Est GFR ( Amer) > 60 Est GFR (Non-Af Amer) > 60 Glucose 99 Calcium 9.0 Total Bilirubin Direct Bilirubin Neonat Total Bilirubin Neonat Direct Bilirubin Neonat Indirect Bili AST ALT Alkaline Phosphatase Creatine Kinase Troponin I NT-Pro-B Natriuret Pep Total Protein Albumin 01/04/19 01/05/19 01/05/19 08:35 04:07 04:07 WBC 18.1 H 21.2 H RBC 4.32 L 3.99 L Hgb 13.5 12.7 L Hct 40.0 36.8 L MCV 93 92 MCH 31.3 31.9 MCHC 33.8 34.6 RDW 12.7 13.1 Plt Count 306 321 Total Counted 100 100 Seg Neutrophils % Not Reportable Not Reportable Seg Neuts % (Manual) 86 H 87 H Band Neutrophils % 2 L 2 L Lymphocytes % Not Reportable Not Reportable Lymphocytes % (Manual) 11 L 6 L Monocytes % Not Reportable Not Reportable Monocytes % (Manual) 1 L 5 Eosinophils % Not Reportable Not Reportable Eosinophils % (Manual) 0 0 Basophils % Not Reportable Not Reportable Basophils % (Manual) 0 0 Absolute Neutrophils Not Reportable Not Reportable Abs Neuts (Manual) 15.9 H 18.9 H Absolute Lymphocytes Not Reportable Not Reportable Abs Lymphs (Manual) 2.0 1.3 Absolute Monocytes Not Reportable Not Reportable Abs Monocytes (Manual) 0.2 1.1 Absolute Eosinophils Not Reportable Not Reportable Absolute Eos (Manual) 0.0 0.0 Absolute Basophils Not Reportable Not Reportable Abs Basophils (Manual) 0.0 0.0 Toxic Granulation SLIGHT Platelet Comment ADEQUATE ADEQUATE RBC Morph Comment NORMO-CYTIC/CHROMIC NORMO-CYTIC/CHROMIC ESR Sodium 136.0 L Potassium 4.9 Chloride 104 Carbon Dioxide 24 Anion Gap 8 BUN 18 Creatinine 0.85 Est GFR ( Amer) > 60 Est GFR (Non-Af Amer) > 60 Glucose 150 H Calcium 9.1 Total Bilirubin 0.3 Direct Bilirubin 0.2 Neonat Total Bilirubin Not Reportable Neonat Direct Bilirubin Not Reportable Neonat Indirect Bili Not Reportable AST 28 ALT 42 Alkaline Phosphatase 83 Creatine Kinase Troponin I NT-Pro-B Natriuret Pep Total Protein 6.1 L Albumin 3.2 L Chest X-Ray 01/02/19 15:17 IMPRESSION: NO ACUTE RADIOGRAPHIC FINDING IN THE CHEST. IMPRESSION/RECOMMENDATION: 1. One brief episode of paroxysmal atrial fibrillation. At present the patient is sinus rhythm. The patient's Cardizem drip has been discontinued. There is problems started the patient on p.o. Cardizem due to blood pressure being on the lower side. The patient's chads vasc2 score is probably 1. The patient already on aspirin and Effient. Hence unless the patient has recurrent episodes of paroxysmal atrial fibrillation would continue current therapy and not start the patient on chronic anticoagulation therapy. Would recommend decreasing the patient's lisinopril to make room for the patient to be in Cardizem at 30 mg p.o. every 8 hours. Would recommend outpatient 30-day event monitor to assess to see if the patient has recurrent episodes of proximal atrial fibrillation, when chronic anticoagulation would be indicated. 2. Acute exacerbation of COPD. Continue respiratory treatments and antibiotics. Continue supplemental oxygen until this can be weaned off. 3. Acute infective bronchitis: Continue antibiotics. 4. Coronary artery disease. History of non-ST elevation DE in April 2018. History of circumflex stent placed at that time. History of shortness of breath and abnormal stress test recently and hence patient had a repeat catheterization and stent placement in the right coronary artery. No definite evidence of non- ST elevation DE this admission. 5. History of sleep apnea: Agree with continuing CPAP, when the patient sleeps. 6. Tobacco abuse disorder: Patient stopped smoking 3 weeks ago. Patient encouraged to refrain from stopping smoking. Medications reviewed. Medications adjusted. This was done in the form of decrease the patient's lisinopril dosage and adding the patient's Cardizem p.o. Medical decision making is of high complexity. 60 minutes spent on this patient more than 50% of time spent in direct patient care. Management plan discussed with the attending physician on the case. Also discussed with the patient patient's . Will sign off. If the patient is interested the patient can follow-up with me as an outpatient.
[2019-01-05] MEDS: AZITHROMYCIN 500 MG in DEXTROSE 5%-WATER 250 ML IV SCH (17:03)
[2019-01-05] MEDS: CEFTRIAXONE SODIUM 1,000 MG in DEXTROSE 5%-WATER 50 ML IV SCH (22:42)
[2019-01-06 06:00] LABS: HEMATOCRIT 38.4 % (37.9-51.0); HEMOGLOBIN 13.1 g/dL (13.5-17.0); MEAN CORPUSCULAR HEMOGLOBIN 31.4 pg (27.0-33.4); MEAN CORPUSCULAR VOLUME 92 fl (80-97); PLATELET COUNT 320 10^3/uL (150-450); RED BLOOD COUNT 4.16 10^6/uL (4.35-5.55); WHITE BLOOD COUNT 23.6 10^3/uL (4.0-10.5)
[2019-01-06 06:17] LABS: ALANINE AMINOTRANSFERASE 47 U/L (21-72); ALBUMIN 3.2 g/dL (3.5-5.0); ALKALINE PHOSPHATASE 109 U/L (38-126); ANION GAP 8 (5-19); ASPARTATE AMINO TRANSFERASE 28 U/L (17-59); BILIRUBIN,DIRECT 0.2 mg/dL (0.0-0.4); BILIRUBIN,TOTAL 0.2 mg/dL (0.2-1.3); BLOOD UREA NITROGEN 17 mg/dL (7-20); CALCIUM 8.9 mg/dL (8.4-10.2); CARBON DIOXIDE 25 mmol/L (22-30); CHLORIDE 104 mmol/L (98-107); GLUCOSE 171 mg/dL (75-110); POTASSIUM 4.4 mmol/L (3.6-5.0); TOTAL PROTEIN 5.7 g/dL (6.3-8.2)
[2019-01-06] MEDS: DILTIAZEM HCL 30 MG TABLET PO SCH ×4 (06:27→23:26)
[2019-01-06] MEDS: HEPARIN SOD (PORCINE) 5,000 UNIT/ML 1 ML SYRINGE SUBCUT SCH ×3 (06:27→21:17)
[2019-01-06] MEDS: PANTOPRAZOLE SODIUM 20 MG TABLET.DR PO SCH (06:27)
[2019-01-06 07:00] LABS: ABSOLUTE LYMPHOCYTES# (MANUAL) 2.1 10^3/uL (0.5-4.7); ABSOLUTE MONOCYTES # (MANUAL) 1.7 10^3/uL (0.1-1.4); BAND NEUTROPHILS % (MANUAL) 3 % (3-5); BASOPHILS % (MANUAL) 0 % (0-2); EOSINOPHILS % (MANUAL) 0 % (0-6); LYMPHOCYTES % (MANUAL) 8 % (13-45); MONOCYTES % (MANUAL) 7 % (3-13); SEGMENTED NEUTROPHILS % (MAN) 81 % (42-78); TOTAL CELLS COUNTED 100
[2019-01-06 07:01] LABS: PLATELET COMMENT ADEQUATE; POLYCHROMASIA SLIGHT; RBC MORPHOLOGY COMMENT NORMO-CYTIC/CHROMIC
[2019-01-06 07:02] LABS: BURR CELLS SLIGHT; POIKILOCYTOSIS SLIGHT
[2019-01-06] MEDS ORDERED: ALBUTEROL SULFATE HFA (90 MCG/PUFF) 200 PUFF/8.5 GM MDI IH PRN (07:58)
[2019-01-06] MEDS ORDERED: NITROGLYCERIN 0.4 MG/TAB 25 TAB/BOTTLE SL PRN (07:58)
--- NOTE | 2019-01-06 08:19 | PDOC PROGRESS REPORT ---
Subjective Progress Note for:: 01/06/19 Subjective:: 63 year old male with a past medical history of COPD, chronic bronchitis, obstructive sleep apnea and coronary artery disease status post coronary artery stent 7 days ago at [facility]. Patient presents with approximately 5 days of shortness of breath and a productive cough with green sputum, use of accessory muscles, rales and hypoxia. Patient complains of dry or itchy throat for approximately 3 weeks. He denies rhinorrhea uncontrolled GERD or sore throat. He denies antibiotics over the last 6 weeks. He is otherwise felt well without chest pain palpitations nausea or vomiting. He receives empiric treatment in the emergency room and referred to the hospitalist for admission. 01/04/2019. No acute events overnight, patient has been using his CPAP overnight, still dependent on supplemental oxygen, dropping to high 80s on room air. Still having nonproductive cough however denies any fever, chills, chest pain, nausea, vomiting, diarrhea, constipation or any urinary symptoms. He stating that he has an appointment on Sunday at 9 AM to get his CPAP at the [facility]. 01/05/2019. No acute events overnight. Patient off of Cardizem since yesterday, was switched to p.o. Cardizem 30 mg every 6 which was held last night due to systolic blood pressure being in the 90s. Patient still dependent on supplemental oxygen. Telemetry sinus rhythm. Patient was updated about his episode of A. fib RVR and the fact that he is still hypoxic and requiring oxygen and is not safe for him to be sent home yet. Patient voiced understanding and he said he will try to call the [facility] and his reschedule his appointment for tomorrow. Patient denies any fever, chills, nausea, vomiting, diarrhea, constipation or any urinary symptoms. 01/06/2019-no acute events in the last 24 hours. Patient is presently on p.o. Cardizem 30 mg every 6 hours and his heart rate is 65 this morning. Pressure is 07/25/1971. Stable. Afebrile. Paroxysmal A. fib is resolved. Pulse ox is 94%. Evaluation was done from home oxygen requirements his pulse ox is 88% on room air at rest. He is planning to make arrangements as an outpatient to get his CPAP at the [facility]. Reason For Visit: ACUTE ON CHRONIC BRONCHITIS COPD EXACERBATION Physical Exam Vital Signs: Temp Pulse Resp BP Pulse Ox 97.4 F 65 20 110/72 94 01/06/19 03:27 01/06/19 07:00 01/06/19 03:27 01/06/19 03:27 01/06/19 03:27 Intake & Output 01/05/19 01/06/19 01/07/19 06:59 06:59 06:59 Intake Total 1932 1889 Balance 1932 1889 Weight 78.2 kg 77.9 kg General appearance: PRESENT: no acute distress, well-developed Head exam: PRESENT: atraumatic Eye exam: PRESENT: PERRLA Mouth exam: PRESENT: moist, tongue midline Neck exam: ABSENT: carotid bruit, JVD, lymphadenopathy, thyromegaly Respiratory exam: PRESENT: decreased breath sounds Cardiovascular exam: PRESENT: RRR. ABSENT: diastolic murmur, rubs, systolic murmur GI/Abdominal exam: PRESENT: normal bowel sounds, soft. ABSENT: distended, guarding, mass, organolmegaly, rebound, tenderness Rectal exam: PRESENT: deferred Extremities exam: PRESENT: full ROM. ABSENT: calf tenderness, clubbing, pedal edema Neurological exam: PRESENT: alert, awake, oriented to person, oriented to place, oriented to time, oriented to situation, CN II-XII grossly intact. ABSENT: motor sensory deficit Psychiatric exam: PRESENT: appropriate affect, normal mood. ABSENT: homicidal ideation, suicidal ideation Results Laboratory Results: 01/06/19 04:57 01/06/19 04:57 01/06/19 01/06/19 04:57 04:57 WBC 23.6 H RBC 4.16 L Hgb 13.1 L Hct 38.4 MCV 92 MCH 31.4 MCHC 34.0 RDW 13.0 Plt Count 320 Seg Neutrophils % Not Reportable Lymphocytes % Not Reportable Monocytes % Not Reportable Eosinophils % Not Reportable Basophils % Not Reportable Absolute Neutrophils Not Reportable Absolute Lymphocytes Not Reportable Absolute Monocytes Not Reportable Absolute Eosinophils Not Reportable Absolute Basophils Not Reportable Sodium 137.0 Potassium 4.4 Chloride 104 Carbon Dioxide 25 Anion Gap 8 BUN 17 Creatinine 0.81 Est GFR ( Amer) > 60 Est GFR (Non-Af Amer) > 60 Glucose 171 H Calcium 8.9 Total Bilirubin 0.2 AST 28 ALT 47 Alkaline Phosphatase 109 Total Protein 5.7 L Albumin 3.2 L 01/02/19 01/02/19 01/02/19 15:38 15:38 17:40 Creatine Kinase 75 Troponin I 0.053 0.055 NT-Pro-B Natriuret Pep 01/02/19 01/02/19 20:28 20:28 Creatine Kinase Troponin I 0.051 NT-Pro-B Natriuret Pep 237 Impressions: Chest X-Ray 01/02/19 15:17 IMPRESSION: NO ACUTE RADIOGRAPHIC FINDING IN THE CHEST. Assessment and Plan - Diagnosis (1) Acute and chronic respiratory failure with hypoxia Is this a current diagnosis for this admission?: Yes Plan: Mild improvement. Still dependent on supplemental O2. Not on home O2. Due to COPD exacerbation. Continue duo nebs, flutter valve, incentive spirometry, IV steroids, empiric IV antibiotics, BiPAP, LABA's/LAMA's. Continue IV antibiotics in the setting of recent hospitalization. Azithromycin and cefepime day 3. Blood cultures from admission positive 1/2 gram-positive cocci. Pending sensitivity. Reassess for need for home oxygen tomorrow. 01/06/[id number]-zinu-old male admitted for acute on chronic respiratory failure with hypoxia pulse ox 88% on room air at rest. He does qualify for home oxygen. Blood cultures are came back positive for gram-positive cocci waiting for the sensitivity report. Presently on azithromycin and cefepime. He is also on p.o. prednisone 20 mg twice daily. WBC count went up to 23,600 today. Patient is making plans to get a CPAP as an outpatient from [facility]. (2) Paroxysmal atrial fibrillation with RVR Is this a current diagnosis for this admission?: Yes Plan: Developed A. fib RVR on 01/04/2019 around 3 PM. Was started on Cardizem drip and converted back to sinus rhythm the same day. Cardiology was consulted. Was transitioned to p.o. Cardizem however 1 of the doses were held because pat ient SBP was in the 90s. As per cardiology recommendations does not need to be on anticoagulation point patient as he is already on Effient and aspirin for his recent PCI. 30-day event monitor has been recommended reproductive healthcare assistant which should be arranged upon patient's discharge. 01/06/2019-patient was admitted with paroxysmal atrial fibrillation with RVR presently on p.o. Cardizem 30 mg every 6 hours and heart rate is 65 today. Patient is already on Effient and aspirin because of the recent PCI placement. Also on cholesterol medications. As per reproductive healthcare assistant recommendations not on anticoagulation. (3) COPD exacerbation Is this a current diagnosis for this admission?: Yes Plan: As per #1. 01/06/[id number]-bbte-old male admitted for COPD exacerbation. Getting scheduled and as needed nebulizations and IV Solu-Medrol. Blood cultures are positive for gram-positive cocci presently on cephapirin and azithromycin. Patient does qualify for home oxygen. (4) Elevated troponin Is this a current diagnosis for this admission?: Yes Plan: 0.053, 0.055, 0.051 respectively. No active chest pain, no EKG changes. This is most likely due to his recent PCI 1 week ago. Continue treatment for underlying CAD. Outpatient cardiology follow-up. If chest pain we will do a cardiac work-up. 01/06/2019-patient came in with elevated troponins most likely secondary to underlying COPD exacerbation, acute on chronic respiratory failure with hypoxia and brief episode of atrial fibrillation. Most likely secondary to oxygen demand mismatch. (5) Coronary artery disease Is this a current diagnosis for this admission?: Yes Plan: Status post PCI x2. Last one x1 week. BNP WNL. Likely elevated cardiac enzymes no EKG changes. Most likely due to recent PCI. Denies active chest pain. Continue DAPT, beta-blockers, WESLEY, statins. Outpatient PCP and cardiology follow-up. 01/06/2019-patient has status post PCI x2. It was done 1 week ago. Initially elevated troponins with no EKG changes no chest pains during the hospital stay. He is on beta-blockers, WESLEY inhibitors, statins, aspirin, efficient. No complaints of chest pains this morning. (6) Obstructive sleep apnea Is this a current diagnosis for this admission?: Yes Plan: Patient has had outpatient nocturnal polysomnography and has ordered his CPAP. [facility] AM. Continue nocturnal CPAP. 01/06/2019-patient is making arrangements to get CPAP as an outpatient. While here during the hospital stay we will arrange for nocturnal CPAP. (7) Elevated WBC count Is this a current diagnosis for this admission?: Yes Plan: 01/06/2019-elevated WBC count is 23,600. Most likely secondary to steroids . - Time Time Spent with patient: 25-34 minutes Medications reviewed and adjusted accordingly: Yes Anticipated discharge: Home
[2019-01-06] MEDS: IPRATROPIUM BROMIDE 0.02% NEB 0.5 MG/2.5 ML AMPUL NEB SCH ×3 (08:32→19:19)
[2019-01-06] MEDS: LEVALBUTEROL HCL NEB 0.63 MG/3 ML AMPUL NEB SCH ×3 (08:32→19:19)
[2019-01-06] MEDS ORDERED: (PENDING PHARMACY ID) (Tiotropium Bromide [Spiriva Respimat] 1 PUFF) IH SCH (10:00)
[2019-01-06] MEDS: PREDNISONE 20 MG TABLET PO SCH ×2 (10:24→17:14)
[2019-01-06] MEDS: ATORVASTATIN CALCIUM 80 MG TABLET PO SCH (10:24)
[2019-01-06] MEDS: PRASUGREL HCL 10 MG TABLET PO SCH (10:24)
[2019-01-06] MEDS: ASPIRIN 81 MG TABLET, ENT COATED PO SCH (10:24)
[2019-01-06] MEDS: METOPROLOL SUCCINATE 25 MG TAB.SR.24H PO SCH (10:25)
[2019-01-06] MEDS: FLUTICASONE/VILANTEROL 100-25 MCG/DOSE IH SCH (10:25)
[2019-01-06] MEDS: FLUTICASONE NASAL SPRAY 50 MCG/SPRY 120 SPRAY/16 GM NASL SCH ×2 (10:25→21:17)
[2019-01-06] MEDS: LISINOPRIL 5 MG TABLET PO SCH (10:25)
[2019-01-06] MEDS: AZITHROMYCIN 500 MG in DEXTROSE 5%-WATER 250 ML IV SCH (17:14)
[2019-01-06] MEDS: CEFTRIAXONE SODIUM 1,000 MG in DEXTROSE 5%-WATER 50 ML IV SCH (21:17)
[2019-01-07 04:35] LABS: HEMATOCRIT 37.8 % (37.9-51.0); HEMOGLOBIN 12.8 g/dL (13.5-17.0); MEAN CORPUSCULAR HEMOGLOBIN 31.3 pg (27.0-33.4); MEAN CORPUSCULAR HGB CONC 33.9 g/dL (32.0-36.0); MEAN CORPUSCULAR VOLUME 92 fl (80-97); PLATELET COUNT 322 10^3/uL (150-450); RED BLOOD COUNT 4.09 10^6/uL (4.35-5.55); WHITE BLOOD COUNT 24.5 10^3/uL (4.0-10.5)
[2019-01-07 05:00] LABS: ALANINE AMINOTRANSFERASE 57 U/L (21-72); ALKALINE PHOSPHATASE 106 U/L (38-126); ANION GAP 7 (5-19); ASPARTATE AMINO TRANSFERASE 30 U/L (17-59); BILIRUBIN,DIRECT 0.2 mg/dL (0.0-0.4); BILIRUBIN,TOTAL 0.3 mg/dL (0.2-1.3); BLOOD UREA NITROGEN 18 mg/dL (7-20); CALCIUM 8.7 mg/dL (8.4-10.2); CARBON DIOXIDE 27 mmol/L (22-30); CHLORIDE 104 mmol/L (98-107); GLUCOSE 153 mg/dL (75-110); POTASSIUM 4.4 mmol/L (3.6-5.0); TOTAL PROTEIN 5.7 g/dL (6.3-8.2)
[2019-01-07 05:01] LABS: ABSOLUTE LYMPHOCYTES# (MANUAL) 4.4 10^3/uL (0.5-4.7); ABSOLUTE MONOCYTES # (MANUAL) 2.7 10^3/uL (0.1-1.4); BAND NEUTROPHILS % (MANUAL) 5 % (3-5); BASOPHILS % (MANUAL) 0 % (0-2); EOSINOPHILS % (MANUAL) 0 % (0-6); LYMPHOCYTES % (MANUAL) 18 % (13-45); MONOCYTES % (MANUAL) 11 % (3-13); RBC MORPHOLOGY COMMENT NORMO-CYTIC/CHROMIC; SEGMENTED NEUTROPHILS % (MAN) 66 % (42-78); TOTAL CELLS COUNTED 100
[2019-01-07 05:02] LABS: PLATELET COMMENT ADEQUATE
[2019-01-07] MEDS: PANTOPRAZOLE SODIUM 20 MG TABLET.DR PO SCH (05:15)
[2019-01-07] MEDS: DILTIAZEM HCL 30 MG TABLET PO SCH ×2 (05:15→11:47)
[2019-01-07] MEDS: HEPARIN SOD (PORCINE) 5,000 UNIT/ML 1 ML SYRINGE SUBCUT SCH ×2 (05:15→13:39)
[2019-01-07] MEDS: LEVALBUTEROL HCL NEB 0.63 MG/3 ML AMPUL NEB SCH ×2 (07:50→13:59)
[2019-01-07] MEDS: IPRATROPIUM BROMIDE 0.02% NEB 0.5 MG/2.5 ML AMPUL NEB SCH ×2 (07:50→13:59)
[2019-01-07 08:48] LABS: HEMATOCRIT 41.3 % (37.9-51.0); HEMOGLOBIN 14.1 g/dL (13.5-17.0); MEAN CORPUSCULAR HEMOGLOBIN 31.5 pg (27.0-33.4); MEAN CORPUSCULAR HGB CONC 34.1 g/dL (32.0-36.0); MEAN CORPUSCULAR VOLUME 92 fl (80-97); PLATELET COUNT 353 10^3/uL (150-450); RED BLOOD COUNT 4.47 10^6/uL (4.35-5.55); RED CELL DISTRIBUTION WIDTH 12.9 % (11.5-14.0); WHITE BLOOD COUNT 25.9 10^3/uL (4.0-10.5)
[2019-01-07 09:12] LABS: ALANINE AMINOTRANSFERASE 56 U/L (21-72); ALBUMIN 3.4 g/dL (3.5-5.0); ALKALINE PHOSPHATASE 100 U/L (38-126); ANION GAP 9 (5-19); ASPARTATE AMINO TRANSFERASE 33 U/L (17-59); BILIRUBIN,DIRECT 0.2 mg/dL (0.0-0.4); BILIRUBIN,TOTAL 0.3 mg/dL (0.2-1.3); BLOOD UREA NITROGEN 17 mg/dL (7-20); CALCIUM 9.1 mg/dL (8.4-10.2); CARBON DIOXIDE 26 mmol/L (22-30); CHLORIDE 104 mmol/L (98-107); GLUCOSE 98 mg/dL (75-110); POTASSIUM 4.2 mmol/L (3.6-5.0); SODIUM 139.4 mmol/L (137-145); TOTAL PROTEIN 6.3 g/dL (6.3-8.2)
[2019-01-07 09:15] LABS: ABSOLUTE LYMPHOCYTES# (MANUAL) 4.7 10^3/uL (0.5-4.7); ABSOLUTE MONOCYTES # (MANUAL) 2.8 10^3/uL (0.1-1.4); BAND NEUTROPHILS % (MANUAL) 1 % (3-5); BASOPHILS % (MANUAL) 0 % (0-2); EOSINOPHILS % (MANUAL) 1 % (0-6); LYMPHOCYTES % (MANUAL) 18 % (13-45); METAMYELOCYTES % (MANUAL) 1 % (0); MONOCYTES % (MANUAL) 11 % (3-13); NUCLEATED RED BLOOD CELLS 1 /100 WBC (0); SEGMENTED NEUTROPHILS % (MAN) 66 % (42-78); TOTAL CELLS COUNTED 100
[2019-01-07 09:17] LABS: PLATELET COMMENT ADEQUATE; POLYCHROMASIA SLIGHT
[2019-01-07 09:18] LABS: MYELOCYTES % (MANUAL) 2 % (0)
[2019-01-07] MEDS: ASPIRIN 81 MG TABLET, ENT COATED PO SCH (10:57)
[2019-01-07] MEDS: ATORVASTATIN CALCIUM 80 MG TABLET PO SCH (10:57)
[2019-01-07] MEDS: PRASUGREL HCL 10 MG TABLET PO SCH (10:57)
[2019-01-07] MEDS: PREDNISONE 20 MG TABLET PO SCH (10:57)
[2019-01-07] MEDS: LISINOPRIL 5 MG TABLET PO SCH (10:58)
[2019-01-07] MEDS: FLUTICASONE/VILANTEROL 100-25 MCG/DOSE IH SCH (10:58)
[2019-01-07] MEDS: METOPROLOL SUCCINATE 25 MG TAB.SR.24H PO SCH (10:58)
[2019-01-07] MEDS: FLUTICASONE NASAL SPRAY 50 MCG/SPRY 120 SPRAY/16 GM NASL SCH (10:59)
--- NOTE | 2019-01-07 12:09 | PDOC DISCHARGE SUMMARY ---
General - Admit/Disc Date/PCP Admission Date/Primary Care Provider: 01/02/19 21:[facility] Discharge Date: 01/07/19 - Discharge Diagnosis (1) Acute and chronic respiratory failure with hypoxia Is this a current diagnosis for this admission?: Yes Summary: Mild improvement. Still dependent on supplemental O2. Not on home O2. Due to COPD exacerbation. Continue duo nebs, flutter valve, incentive spirometry, IV steroids, empiric IV antibiotics, BiPAP, LABA's/LAMA's. Continue IV antibiotics in the setting of recent hospitalization. Azithromycin and cefepime day 3. Blood cultures from admission positive 1/2 gram-positive cocci. Pending sensitivity. Reassess for need for home oxygen tomorrow. 01/06/[id number]-fppi-old male admitted for acute on chronic respiratory failure with hypoxia pulse ox 88% on room air at rest. He does qualify for home oxygen. Blood cultures are came back positive for gram-positive cocci waiting for the sensitivity report. Presently on azithromycin and cefepime. He is also on p.o. prednisone 20 mg twice daily. WBC count went up to 23,600 today. Patient is making plans to get a CPAP as an outpatient from [facility]. 01/07/[id number]-rfle-old male admitted with acute on chronic respiratory failure with hypoxia. Most likely secondary to COPD exacerbation. Patient qualified for home oxygen [facility] making arrangements for him to receive home oxygen at home. Patient is also going home on antibiotic therapy levo floxacillin 500 mg p.o. daily for 10 days. The cultures came back positive for staph epidermidis. (2) Paroxysmal atrial fibrillation with RVR Is this a current diagnosis for this admission?: Yes Summary: Developed A. fib RVR on 01/04/2019 around 3 PM. Was started on Cardizem drip and converted back to sinus rhythm the same day. Cardiology was consulted. Was transitioned to p.o. Cardizem however 1 of the doses were held because patient SBP was in the 90s. As per cardiology recommendations does not need to be on anticoagulation point patient as he is already on Effient and aspirin for his recent PCI. 30-day event monitor has been recommended filter tank tender which should be arranged upon patient's discharge. 01/06/2019-patient was admitted with paroxysmal atrial fibrillation with RVR presently on p.o. Cardizem 30 mg every 6 hours and heart rate is 65 today. Patient is already on Effient and aspirin because of the recent PCI placement. Also on cholesterol medications. As per filter tank tender recommendations not on anticoagulation. 01/07/2019-patient admitted with paroxysmal atrial fibrillation with RVR presently on Cardizem 30 mg every 6 hours on metoprolol 25 mg p.o. daily he is going home on Cardizem 60 mg twice a day. Patient was strongly advised to follow-up with Dr. Marrero as an outpatient in less than a week. Patient agreed and verbalized response. (3) COPD exacerbation Is this a current diagnosis for this admission?: Yes Summary: As per #1. 01/06/[id number]-xxtt-old male admitted for COPD exacerbation. Getting scheduled and as needed nebulizations and IV Solu-Medrol. Blood cultures are positive for gram-positive cocci presently on cephapirin and azithromycin. Patient does qualify for home oxygen. 01/07/2019-patient admitted with COPD exacerbation. On scheduled nebulizer treatments and p.o. prednisone. The blood cultures came back positive for staph epidermidis in 2 bottles. Sensitivity to levofloxacin. I gave the prescription for him for levo floxacillin 500 mg p.o. daily for 10 days. (4) Elevated troponin Is this a current diagnosis for this admission?: Yes Summary: 0.053, 0.055, 0.051 respectively. No active chest pain, no EKG changes. This is most likely due to his recent PCI 1 week ago. Continue treatment for underlying CAD. Outpatient cardiology follow-up. If chest pain we will do a cardiac work-up. 01/06/2019-patient came in with elevated troponins most likely secondary to underlying COPD exacerbation, acute on chronic respiratory failure with hypoxia and brief episode of atrial fibrillation. Most likely secondary to oxygen demand mismatch. 01/07/2019-elevated troponins most likely secondary to COPD exacerbation. No complaints of chest pain during the hospital stay. After note patient has a recent history of PCI placement. Patient was advised to continue aspirin and Effient at home. (5) Coronary artery disease Is this a current diagnosis for this admission?: Yes Summary: Status post PCI x2. Last one x1 week. BNP WNL. Likely elevated cardiac enzymes no EKG changes. Most likely due to recent PCI. Denies active chest pain. Continue DAPT, beta-blockers, WESLEY, statins. Outpatient PCP and cardiology follow-up. 01/06/2019-patient has status post PCI x2. It was done 1 week ago. Initially elevated troponins with no EKG changes no chest pains during the hospital stay. He is on beta-blockers, WESLEY inhibitors, statins, aspirin, efficient. No complaints of chest pains this morning. (6) Obstructive sleep apnea Is this a current diagnosis for this admission?: Yes Summary: Patient has had outpatient nocturnal polysomnography and has ordered his CPAP. [facility] that [facility] 9 AM. Continue nocturnal CPAP. 01/06/2019-patient is making arrangements to get CPAP as an outpatient. While here during the hospital stay we will arrange for nocturnal CPAP 01/07/2019-patient advised go for sleep study as an outpatient is already got an appointment for next week. (7) Elevated WBC count Is this a current diagnosis for this admission?: Yes Summary: 01/06/2019-elevated WBC count is 23,600. Most likely secondary to steroids . 01/07/2019-patient WBC count is 24,500 I strongly advised him to stay another day for continue antibiotic therapy in the hospital patient said he is doing fine he is feeling good he wants to go home and take the antibiotics at home. - Additional Information Resuscitation Status: Full Code Discharge Diet: Cardiac Discharge Activity: Activity As Tolerated Prescriptions: Diltiazem HCl [Cardizem 60 mg Tablet] 1 tab PO Q12 #60 tab Levofloxacin [Levaquin 500 mg Tablet] 500 mg PO DAILY #10 tablet Rosuvastatin Calcium [Crestor] 40 mg PO DAILY #30 tablet Home Medications: Albuterol Sulfate [Proair HFA Inhalation Aerosol 8.5 gm MDI] 2 puff IH Q6HP PRN 01/02/19 Aspirin [Adult Low Dose Aspirin EC] 81 mg PO DAILY 01/02/19 Budesonide/Formoterol Fumarate [Symbicort HFA 80-4.5 mcg Inhaler 6.9 gm] 2 puff IH BID 01/02/19 Lisinopril [Zestril] 5 mg PO DAILY 01/02/19 Nitroglycerin [Nitrostat 0.4 mg (1/150 Gr) Tabs 25/Bottle] 0.4 mg SL Q5MP PRN 01/02/19 Omeprazole 20 mg PO DAILY 01/02/19 Prasugrel HCl [Effient 10 mg Tablet] 10 mg PO DAILY 01/02/19 Tiotropium [place] [Spiriva Respimat] 1 puff IH DAILY 01/02/19 Diltiazem HCl [Cardizem 60 mg Tablet] 1 tab PO Q12 #60 tab 01/07/19 Levofloxacin [Levaquin 500 mg Tablet] 500 mg PO DAILY #10 tablet 01/07/19 Rosuvastatin Calcium [Crestor] 40 mg PO DAILY #30 tablet 01/07/19 History of Present Illness History of Present Illness: ALBARO NAVARRO JR is a 63 year old male 63 year old male with a past medical history of COPD, chronic bronchitis, obstructive sleep apnea and coronary artery disease status post coronary artery stent 7 days ago at [facility]. Patient presents with approximately 5 days of shortness of breath and a productive cough with green sputum, use of accessory muscles, rales and hypoxia. Patient complains of dry or itchy throat for approximately 3 weeks. He denies rhinorrhea uncontrolled GERD or sore throat. He denies antibiotics over the last 6 weeks. He is otherwise felt well without chest pain palpitations nausea or vomiting. He receives empiric treatment in the emergency room and referred to the hospitalist for admission. Hospital Course Hospital Course: 63 year old male with a past medical history of COPD, chronic bronchitis, obstructive sleep apnea and coronary artery disease status post coronary artery stent 7 days ago at [facility]. Patient presents with approximately 5 days of shortness of breath and a productive cough with green sputum, use of accessory muscles, rales and hypoxia. Patient complains of dry or itchy throat for approximately 3 weeks. He denies rhinorrhea uncontrolled GERD or sore throat. He denies antibiotics over the last 6 weeks. He is other sosa felt well without chest pain palpitations nausea or vomiting. He receives empiric treatment in the emergency room and referred to the hospitalist for admission. 01/04/2019. No acute events overnight, patient has been using his CPAP overnight, still dependent on supplemental oxygen, dropping to high 80s on room air. Still having nonproductive cough however denies any fever, chills, chest pain, nausea, vomiting, diarrhea, constipation or any urinary symptoms. He stating that he has an appointment on Sunday at 9 AM to get his CPAP at the [facility]. 01/05/2019. No acute events overnight. Patient off of Cardizem since yesterday, was switched to p.o. Cardizem 30 mg every 6 which was held last night due to systolic blood pressure being in the 90s. Patient still dependent on supplemental oxygen. Telemetry sinus rhythm. Patient was updated about his episode of A. fib RVR and the fact that he is still hypoxic and requiring oxygen and is not safe for him to be sent home yet. Patient voiced understanding and he said he will try to call the [facility] and his reschedule his appointment for tomorr ow. Patient denies any fever, chills, nausea, vomiting, diarrhea, constipation or any urinary symptoms. 01/06/2019-no acute events in the last 24 hours. Patient is presently on p.o. Cardizem 30 mg every 6 hours and his heart rate is 65 this morning. Pressure is 07/[birth year]/1971. Stable. Afebrile. Paroxysmal A. fib is resolved. Pulse ox is 94%. Evaluation was done from home oxygen requirements his pulse ox is 88% on room air at rest. He is planning to make arrangements as an outpatient to get h is CPAP at the [facility]. Physical Exam Vital Signs: Temp Pulse Resp BP Pulse Ox 97.6 F 64 16 115/65 92 01/07/19 08:42 01/07/19 08:42 01/07/19 08:42 01/07/19 08:42 01/07/19 08:42 Intake & Output 01/06/19 01/07/19 01/08/19 06:59 06:59 06:59 Intake Total 1890 1722 Balance 189 1722 Weight 77.9 kg 77.9 kg General appearance: PRESENT: no acute distress, well-developed Head exam: PRESENT: atraumatic Eye exam: PRESENT: PERRLA Mouth exam: PRESENT: moist, tongue midline Neck exam: ABSENT: carotid bruit, JVD, lymphadenopathy, thyromegaly Respiratory exam: PRESENT: decreased breath sounds Cardiovascular exam: PRESENT: RRR. ABSENT: diastolic murmur, rubs, systolic murmur GI/Abdominal exam: PRESENT: normal bowel sounds, soft. ABSENT: distended, guarding, mass, organolmegaly, rebound, tenderness Rectal exam: PRESENT: deferred Extremities exam: PRESENT: full ROM. ABSENT: calf tenderness, clubbing, pedal edema Neurological exam: PRESENT: alert, awake, oriented to person, oriented to place, oriented to time, oriented to situation, CN II-XII grossly intact. ABSENT: motor sensory deficit Psychiatric exam: PRESENT: appropriate affect, normal mood. ABSENT: homicidal ideation, suicidal ideation Results Laboratory Results: 01/07/19 07:48 01/07/19 07:48 01/07/19 01/07/19 01/07/19 03:54 03:54 07:48 WBC 24.5 H 25.9 H RBC 4.09 L 4.47 Hgb 12.8 L 14.1 Hct 37.8 L 41.3 MCV 92 92 MCH 31.3 31.5 MCHC 33.9 34.1 RDW 13.0 12.9 Plt Count 322 353 Seg Neutrophils % Not Reportable Not Reportable Lymphocytes % Not Reportable Not Reportable Monocytes % Not Reportable Not Reportable Eosinophils % Not Reportable Not Reportable Basophils % Not Reportable Not Reportable Absolute Neutrophils Not Reportable Not Reportable Absolute Lymphocytes Not Reportable Not Reportable Absolute Monocytes Not Reportable Not Reportable Absolute Eosinophils Not Reportable Not Reportable Absolute Basophils Not Reportable Not Reportable Sodium 138.0 Potassium 4.4 Chloride 104 Carbon Dioxide 27 Anion Gap 7 BUN 18 Creatinine 0.82 Est GFR ( Amer) > 60 Est GFR (Non-Af Amer) > 60 Glucose 153 H Calcium 8.7 Magnesium 2.2 Total Bilirubin 0.3 AST 30 ALT 57 Alkaline Phosphatase 106 Total Protein 5.7 L Albumin 3.0 L 01/07/19 07:48 WBC RBC Hgb Hct MCV MCH MCHC RDW Plt Count Seg Neutrophils % Lymphocytes % Monocytes % Eosinophils % Basophils % Absolute Neutrophils Absolute Lymphocytes Absolute Monocytes Absolute Eosinophils Absolute Basophils Sodium 139.4 Potassium 4.2 Chloride 104 Carbon Dioxide 26 Anion Gap 9 BUN 17 Creatinine 0.83 Est GFR ( Amer) > 60 Est GFR (Non-Af Amer) > 60 Glucose 98 Calcium 9.1 Magnesium 2.2 Total Bilirubin 0.3 AST 33 ALT 56 Alkaline Phosphatase 100 Total Protein 6.3 Albumin 3.4 L 01/02/19 22:58 Blood Blood Culture - Final Staphylococcus Epidermidis 01/02/19 01/02/19 01/02/19 15:38 15:38 17:40 Creatine Kinase 75 Troponin I 0.053 0.055 NT-Pro-B Natriuret Pep 06/20/19 06/20/19 20:28 20:28 Creatine Kinase Troponin I 0.051 NT-Pro-B Natriuret Pep 237 Impressions: Chest X-Ray 01/02/19 15:17 IMPRESSION: NO ACUTE RADIOGRAPHIC FINDING IN THE CHEST. Qualifiers - * PATIENT BEING DISCHARGED WITH ANY OF THE FOLLOWING DIAGNOSIS: No VTE patient discharged on overlapping Therapy?: No Acute Heart Failure - Is this a Heart Failure Patient?: No Plan Discharge Plan: Patient is going home today. Time Spent: Greater than 30 Minutes
[2019-01-07 15:12] VITALS: BP 107/65
[2019-01-08 13:40] LABS: PATH REVIEW PATHOLOGIST REVIEWED
== END 2019-01-07 16:13 | disposition home or self-care (01) | DRG 190 ==
LOC: ER 14:34 → OBSVTOIN 21:19 → EH 21:19 → INTOOBSV 21:19 → 3N 01-03 00:12
PROVIDERS: ADMIT Internal Medicine; ATTEND Internal Medicine
DX: J44.1 Chronic obstructive pulmonary disease with (acute) exacerbation (principal); J96.21 Acute and chronic respiratory failure with hypoxia; G47.33 Obstructive sleep apnea (adult) (pediatric); I25.10 Atherosclerotic heart disease of native coronary artery without angina pectoris; F17.201 Nicotine dependence, unspecified, in remission; I10 Essential (primary) hypertension; I48.0 Paroxysmal atrial fibrillation
CPT/HCPCS: 36415; 71046; 80048; 80053; 82550; 83735; 83880; 84484; 85025; 85652; 87040; 87077; 87186; 93005; 93010; 94640; 94660; 94667; 94668; 94799; 96365; 99285; G0378; J0456; J0696; J1644; J3475; J3490; J7060; J7512; J7614; J7620

== ENCOUNTER 2020-04-30 07:49 | Day surgery (SDC) | payer OTHER ==
[~2020-04-30 07:49] MED LIST: PROPOFOL INJ 200 MG/20 ML VIAL IV ONE
[2020-04-30 09:31] VITALS: BP 106/71
--- NOTE | 2020-04-30 10:36 | Operative Report ---
Operative Report DATE OF SURGERY: 04/30/20 Operative Report: The risks benefits and alternatives of the procedure explained to the patient in detail and informed consent is obtained.A GIF Olympus video scope was inserted into the patient's mouth and hypopharynx, the esophagus is identified intubated and insufflated, the scope was then advanced through the esophagus stomach and duodenum ,retroflexion maneuver is done ,the esophagus stomach and first and second portions of the duodenum examined PREOPERATIVE DIAGNOSIS: Noncardiac chest pain POSTOPERATIVE DIAGNOSIS: Gastritis status post biopsy rule out Helicobacter pylori OPERATION: EGD with biopsy SURGEON: NAOMI LOCKHART ANESTHESIA: LMAC TISSUE REMOVED OR ALTERED: As noted above. COMPLICATIONS: None. ESTIMATED BLOOD LOSS: None. INTRAOPERATIVE FINDINGS: As noted above. PROCEDURE: Patient tolerated the procedure well. No immediate postprocedure complications are noted. Patient is discharged in good condition. Discharge date 04/30/2020. Discharge diet: Regular. Discharge activity: Regular. 2 to 3-week follow-up to discuss findings. Patient is instructed call the office or proceed to the emergency room should there be any further problems questions. Wait on the pathology.
== END 2020-04-30 09:23 | disposition home or self-care (01) ==
LOC: END 07:49
PROVIDERS: ATTEND Internal Medicine Gastroenterology
DX: K29.50 Unspecified chronic gastritis without bleeding (principal); K21.9 Gastro-esophageal reflux disease without esophagitis; Z03.818 Encounter for observation for suspected exposure to other biological agents ruled out; J44.9 Chronic obstructive pulmonary disease, unspecified; G47.33 Obstructive sleep apnea (adult) (pediatric); I25.2 Old myocardial infarction; I10 Essential (primary) hypertension; F17.200 Nicotine dependence, unspecified, uncomplicated; Z99.81 Dependence on supplemental oxygen; Z95.5 Presence of coronary angioplasty implant and graft; Z95.810 Presence of automatic (implantable) cardiac defibrillator; Z79.899 Other long term (current) drug therapy
CPT/HCPCS: 43239; 87635; 88305 ×2; J2704; C9803; 731